=== PATIENT | male | born 1995 | race Caucasian/White ===

== ENCOUNTER 2018-06-13 16:18 | Inpatient (IN) | payer MEDICAID, OTHER ==
--- NOTE | 2018-06-13 16:28 | EDM.PDOC ---
ED HPI GENERAL MEDICAL PROBLEM - General Chief Complaint: Skin Complaint Time Seen by Provider: 06/13/18 16:24 Source of Information: Reports: Patient History Limitations: Reports: No Limitations - History of Present Illness INITIAL COMMENTS - FREE TEXT/NARRATIVE: History of present illness: []Patient had a positive RPR back in April but did not follow-up. Is sent to the ED by Dr. Knight with diagnosis of stage syphilis. Dr. Knight requested lumbar puncture admission for IV antibiotics. Patient has had penile ulcerations since April that have never cleared despite antibiotics. He also has a history of herpes. Dr. Knight gave him Bicillin IM prior to his sending him to the ED. Review of systems: As per history of present illness and below otherwise all systems reviewed and negative. Past medical history: As per history of present illness and as reviewed below otherwise noncontributory. Surgical history: As per history of present illness and as reviewed below otherwise noncontributory. Social history: No reported history of drug or alcohol abuse. Family history: As per history of present illness and as reviewed below otherwise noncontributory. Physical exam: General: Well developed, well nourished in NAD HEENT: Atraumatic, normocephalic, pupils reactive, negative for conjunctival pallor or scleral icterus, mucous membranes moist, throat clear, neck supple, nontender, trachea midline. Lungs: Clear to auscultation, breath sounds equal bilaterally, chest nontender. Heart: S1S2, regular, negative for clicks, rubs, or JVD. Abdomen: NABS, Soft, nondistended, nontender. Negative for masses or hepatosplenomegaly. Negative for costovertebral tenderness. Pelvis: Stable nontender. Genitourinary: Deferred. Rectal: Deferred. Extremities: Atraumatic, negative for cords or calf pain. Neurovascular unremarkable. Neuro: Awake, alert, oriented. Cranial nerves II through XII unremarkable. Cerebellum unremarkable. Motor and sensory unremarkable throughout. Exam nonfocal. Skin: Multiple ulcers on hands Diagnostics: Lumbar puncture be VDRL sent Therapeutics: Patient received Bicillin prior to arrival ED Course: Unremarkable Impression: Stage III syphilis Prescriptions: Plan: Admit for IV antibiotics Definitive disposition and diagnosis as appropriate pending reevaluation and review of above. Penis Pain Score (Numeric/FACES): 9 - Related Data Allergies Allergy/AdvReac Type Severity Reaction Status Date / Time No Known Allergies Allergy Verified 06/13/18 16:23 Home Meds: Home Meds . [No Known Home Meds] 04/16/18 [History] Past Medical History HEENT History: Reports: None Cardiovascular History: Reports: None Respiratory History: Reports: None Gastrointestinal History: Reports: None Genitourinary History: Reports: None Musculoskeletal History: Reports: None Neurological History: Reports: None Psychiatric History: Reports: None Endocrine/Metabolic History: Reports: None Hematologic History: Reports: None Immunologic History: Reports: None Oncologic (Cancer) History: Reports: None Dermatologic History: Reports: None - Infectious Disease History Infectious Disease History: Reports: Herpes - Past Surgical History Respiratory Surgical History: Reports: None Male Surgical History: Reports: None Social & Family History - Family History Family Medical History: Noncontributory ED ROS GENERAL - Review of Systems Review Of Systems: ROS reveals no pertinent complaints other than HPI. ED EXAM, SKIN/RASH Exam: See Below (See history of present illness) Course - Vital Signs Last Recorded V/S: Last Vital Signs Temp 97.4 F 06/13/18 16:20 Pulse 81 06/13/18 16:20 Resp 18 06/13/18 16:20 BP 99/59 L 06/13/18 16:20 Pulse Ox 97 06/13/18 16:20 - Orders/Labs/Meds Orders: Active Orders 24 hr Category Date Time Status Patient Status [ADT] Stat ADT 06/13/18 17:23 Active VDRL, CSF Stat Lab 06/13/18 17:15 Received Sodium Chloride 0.9% [Saline Flush] Med 06/13/18 17:23 Active 10 ml FLUSH ASDIRECTED PRN Sodium Chloride 0.9% [Saline Flush] Med 06/13/18 17:23 Active 2.5 ml FLUSH ASDIRECTED PRN Saline Lock Insert [OM.PC] Stat Oth 06/13/18 17:17 Ordered Medication Orders Acetaminophen (Tylenol) 650 mg PO Q4H PRN PRN Reason: Pain (Mild 1-3)/fever Docusate Sodium (Colace) 100 mg PO BID PRN PRN Reason: Constipation Enoxaparin Sodium (Lovenox) 40 mg SUBCUT Q24H DARIANA Last Admin: 06/13/18 18:32 Dose: 40 mg Penicillin G Potassium 4 (millunits/ Dextrose/Water) 100 mls @ 200 mls/hr IV Q4H [facility] Stop: 06/27/18 18:46 Ibuprofen (Motrin) 800 mg PO Q6H PRN PRN Reason: Pain (mild 1-3) Ketorolac Tromethamine (Toradol) 30 mg IV Q6H PRN PRN Reason: Pain (moderate 4-6) Morphine Sulfate (Morphine) 2 mg IVPUSH Q2H PRN PRN Reason: Pain (severe 7-10) Stop: 06/14/18 17:54 Last Admin: 06/13/18 18:33 Dose: 2 mg Nicotine (Habitrol) 14 mg TRDERM DAILY [facility] Last Admin: 06/13/18 18:59 Dose: 14 mg Ondansetron HCl (Zofran Odt) 4 mg PO Q4H PRN PRN Reason: nausea, able to take PO Ondansetron HCl (Zofran) 4 mg IVPUSH Q4H PRN PRN Reason: Nausea Polyethylene Glycol (Miralax) 17 gm PO DAILY PRN PRN Reason: Constipation Sodium Chloride (Saline Flush) 10 ml FLUSH ASDIRECTED PRN PRN Reason: Keep Vein Open Last Admin: 06/13/18 17:30 Dose: 10 ml Sodium Chloride (Saline Flush) 2.5 ml FLUSH ASDIRECTED PRN PRN Reason: Keep Vein Open Last Admin: 06/13/18 17:30 Dose: 2.5 ml Labs: Laboratory Tests 06/13/18 06/13/18 06/13/18 Range/Units 17:15 17:22 17:22 WBC 5.21 (4.0-11.0) K/uL RBC 4.43 L (4.50-5.90) M/uL Hgb 13.3 (13.0-17.0) g/dL Hct 38.9 (38.0-50.0) % MCV 87.8 (80.0-98.0) fL MCH 30.0 (27.0-32.0) pg MCHC 34.2 (31.0-37.0) g/dL RDW Std Deviation 43.4 (28.0-62.0) fl RDW Coeff of Zari 14 (11.0-15.0) % Plt Count 265 (150-400) K/uL MPV 10.20 (7.40-12.00) fL Neut % (Auto) 61.4 (48.0-80.0) % Lymph % (Auto) 27.8 (16.0-40.0) % [place] % (Auto) 9.2 (0.0-15.0) % Eos % (Auto) 0.4 (0.0-7.0) % Baso % (Auto) 1.2 (0.0-1.5) % Neut # (Auto) 3.2 (1.4-5.7) K/uL Lymph # (Auto) 1.5 (0.6-2.4) K/uL [place] # (Auto) 0.5 (0.0-0.8) K/uL Eos # (Auto) 0.0 (0.0-0.7) K/uL Baso # (Auto) 0.1 (0.0-0.1) K/uL Nucleated RBC % 0.0 /100WBC Nucleated RBCs # 0 K/uL Sodium 143 (136-148) mmol/L Potassium 3.7 (3.5-5.1) mmol/L Chloride 106 (98-107) mmol/L Carbon Dioxide 29.4 (21.0-32.0) mmol/L BUN 11 (7.0-18.0) mg/dL Creatinine 0.9 (0.8-1.3) mg/dL Est Cr Clr Drug Dosing 149.94 mL/min Estimated GFR (MDRD) > 60.0 ml/min Glucose 86 (74-106) mg/dL Calcium 8.3 L (8.5-10.1) mg/dL Total Bilirubin 0.3 (0.2-1.0) mg/dL AST 27 (15-37) IU/L ALT 34 (14-63) IU/L Alkaline Phosphatase 82 (46-116) U/L Total Protein 6.2 L (6.4-8.2) g/dL Albumin 2.6 L (3.4-5.0) g/dL Globulin 3.6 (2.6-4.0) g/dL Albumin/Globulin Ratio 0.7 L (0.9-1.6) CSF Appearance CLEAR CSF Color COLORLESS CSF WBC 0.045 H (0-0.005) K/uL CSF RBC 0.000 (0.0-0.0) M/uL CSF Mononuclear Cells 97.8 % CSF Polymorphonuclear 2.2 % CSF Glucose 56.0 (40-70) mg/dL CSF Total Protein 50 H (15-45) mg/dL Meds: Medications Generic Name Dose Route Start Last Admin Trade Name Freq PRN Reason Stop Dose Admin Acetaminophen 650 mg 06/13/18 17:52 Tylenol PO Q4H PRN Pain (Mild 1-3)/fever Docusate Sodium 100 mg 06/13/18 17:52 Colace PO BID PRN Constipation Enoxaparin Sodium 40 mg 06/13/18 18:00 06/13/18 18:32 Lovenox SUBCUT 40 mg Q24H DARIANA Administration Penicillin G Potassium 4 100 mls @ 200 mls/hr 06/13/18 18:45 millunits/ Dextrose/Water IV 06/27/18 18:46 Q4H DARIANA Ibuprofen 800 mg 06/13/18 17:52 Motrin PO Q6H PRN Pain (mild 1-3) Ketorolac Tromethamine 30 mg 06/13/18 17:52 Toradol IV Q6H PRN Pain (moderate 4-6) Morphine Sulfate 2 mg 06/13/18 17:52 06/13/18 18:33 Morphine IVPUSH 06/14/18 17:54 2 mg Q2H PRN Administration Pain (severe 7-10) Nicotine 14 mg 06/13/18 18:39 06/13/18 18:59 Habitrol TRDERM 14 mg DAILY DARIANA Administration Ondansetron HCl 4 mg 06/13/18 17:52 Zofran Odt PO Q4H PRN nausea, able to take PO Ondansetron HCl 4 mg 06/13/18 17:52 Zofran IVPUSH Q4H PRN Nausea Polyethylene Glycol 17 gm 06/13/18 17:52 Miralax PO DAILY PRN Constipation Sodium Chloride 10 ml 06/13/18 17:23 06/13/18 17:30 Saline Flush FLUSH 10 ml ASDIRECTED PRN Administration Keep Vein Open Sodium Chloride 2.5 ml 06/13/18 17:23 06/13/18 17:30 Saline Flush FLUSH 2.5 ml ASDIRECTED PRN Administration Keep Vein Open Discontinued Medications Generic Name Dose Route Start Last Admin Trade Name Korin PRN Reason Stop Dose Admin Ketorolac Tromethamine 60 mg 06/13/18 17:12 06/13/18 17:33 Toradol IM 06/13/18 17:13 Not Given ONETIME ONE Ketorolac Tromethamine 30 mg 06/13/18 17:16 06/13/18 17:25 Toradol IVPUSH 06/13/18 17:17 30 mg ONETIME ONE Administration Nicotine 14 mg 06/14/18 09:00 Habitrol TRDERM DAILY [facility] Departure - Departure Time of Disposition: 17:55 Disposition: Admitted As Inpatient 67 Condition: Good Clinical Impression: Syphilis in male - Discharge Information *PRESCRIPTION DRUG MONITORING PROGRAM REVIEWED*: No *COPY OF PRESCRIPTION DRUG MONITORING REPORT IN PATIENT EVAN: No - My Orders Last 24 Hours: My Active Orders 06/13/18 17:15 VDRL, CSF Stat 06/13/18 17:17 Saline Lock Insert [OM.PC] Stat 06/13/18 17:23 Patient Status [ADT] Stat Sodium Chloride 0.9% [Saline Flush] 10 ml FLUSH ASDIRECTED PRN Sodium Chloride 0.9% [Saline Flush] 2.5 ml FLUSH ASDIRECTED PRN - Assessment/Plan Last 24 Hours: My Active Orders 06/13/18 17:15 VDRL, CSF Stat 06/13/18 17:17 Saline Lock Insert [OM.PC] Stat 06/13/18 17:23 Patient Status [ADT] Stat Sodium Chloride 0.9% [Saline Flush] 10 ml FLUSH ASDIRECTED PRN Sodium Chloride 0.9% [Saline Flush] 2.5 ml FLUSH ASDIRECTED PRN
[2018-06-13] MEDS ORDERED: Ketorolac 60 MG/2 ML SDV IM ONE (17:12)
[2018-06-13] MEDS ORDERED: Ketorolac 30 MG/ML SDV IVPUSH ONE (17:16)
[2018-06-13] MEDS ORDERED: Sodium Chloride 0.9% 10 ML Syringe FLUSH PRN (17:23)
[2018-06-13] MEDS ORDERED: Sodium Chloride 0.9% 2.5 ML Syringe FLUSH PRN (17:23)
[2018-06-13] MEDS ORDERED: Ondansetron 4 MG Tab.DIS PO PRN (17:52)
[2018-06-13] MEDS ORDERED: Morphine 10 MG/ML Syringe IVPUSH PRN (17:52)
[2018-06-13] MEDS ORDERED: Ondansetron 4 MG/2 ML SDV IVPUSH PRN (17:52)
[2018-06-13] MEDS ORDERED: Docusate Sodium 100 MG Cap PO PRN (17:52)
[2018-06-13] MEDS ORDERED: Ketorolac 30 MG/ML SDV IV PRN (17:52)
[2018-06-13] MEDS ORDERED: Polyethylene Glycol 3350 Powder 17 GM Packet PO PRN (17:52)
[2018-06-13 18:00] LABS: CHLORIDE,CL 106 mmol/L (98-107); SODIUM,NA 143 mmol/L (136-148)
[2018-06-13] MEDS: Enoxaparin 40 MG/0.4 ML Syringe SUBCUT SCH (18:32)
[2018-06-13] MEDS ORDERED: WATER IV SCH ×2 (18:45)
[2018-06-13] MEDS ORDERED: PENICILLIN POTASSIUM IV SCH ×2 (18:45)
[2018-06-13] MEDS ORDERED: DEXTROSE IV SCH ×2 (18:45)
[2018-06-13] MEDS: Nicotine 14 MG/24 Hr Patch TRDERM SCH (18:59)
--- NOTE | 2018-06-13 19:15 | PCM.HP ---
H&P History of Present Illness - General Date of Service: 06/13/18 Admit Problem/Dx: Admission Diagnosis/Problem Admission Diagnosis/Problem Syphilis - History of Present Illness Initial Comments - Free Text/Narative: Dre Torres is a 22 y/o male who presented to the ER from Dr. Knight's clinic after there was a concern for neurosyphilis. Patient states that he recently moved from [place] to work in the [employer] and that since March he has been noticing genital lesions, ulcers and discharge. He noticed an abdominal rash few weeks ago which he thought it was from work since working in the [employer], however, the rash has resolved but he now has lesions on his hands and lower extremities. In addition, still has tender genital ulcers. For the past 1 week he has been having headaches and eye pain. In addition, a sore throat with some myalgias. He denies any other STI's and states that he was negative for HIV back in February. He is bisexual and does not use protection. Denies any illicit drug use. In the ER, a lumbar puncture was performed and CSF analysis results suggest neurosyphilis. I have consulted with Dr. Ann, Infectious Disease at [facility]. Patient will need Penicillin IV Q4H for at least 10-14 days. Penis Pain Score (Numeric/FACES): 9 - Related Data Allergies/Adverse Reactions: Allergies Allergy/AdvReac Type Severity Reaction Status Date / Time No Known Allergies Allergy Verified 06/13/18 16:23 Home Medications: Home Meds . [No Known Home Meds] 04/16/18 [History] Past Medical History - Past Health History Medical/Surgical History: Denies Medical/Surgical History HEENT History: Reports: None Cardiovascular History: Reports: None Respiratory History: Reports: None Gastrointestinal History: Reports: None Genitourinary History: Reports: None Musculoskeletal History: Reports: None Neurological History: Reports: None Psychiatric History: Reports: None Endocrine/Metabolic History: Reports: None Hematologic History: Reports: None Immunologic History: Reports: None Oncologic (Cancer) History: Reports: None Dermatologic History: Reports: None - Infectious Disease History Infectious Disease History: Reports: Herpes Other Infectious Disease History: syphillis - Past Surgical History Respiratory Surgical History: Reports: None Male Surgical History: Reports: None Social & Family History - Family History Family Medical History: Noncontributory - Tobacco Use Smoking Status *Q: Current Every Day Smoker Years of Tobacco use: 2 Packs/Tins Daily: 0.5 Month/Year Tobacco Last Used: june Second Hand Smoke Exposure: No - Caffeine Use Caffeine Use: Reports: Coffee, Energy Drinks, Tea - Alcohol Use Date of Last Drink: 06/03/18 Time of Last Drink: 21:00 - Recreational Drug Use Recreational Drug Use: No H&P Review of Systems - Review of Systems: Review Of Systems: ROS reveals no pertinent complaints other than HPI. Exam - Exam Exam: See Below - Vital Signs Vital Signs: Last Vital Signs Temp 36.3 C 06/13/18 16:20 Pulse 81 06/13/18 16:20 Resp 18 06/13/18 16:20 BP 99/59 L 06/13/18 16:20 Pulse Ox 97 06/13/18 16:20 Weight: 84.776 kg - Exam General: Alert, Oriented, Cooperative HEENT: Conjunctiva Clear, Mucosa Moist & [place] Lungs: Clear to Auscultation, Normal Respiratory Effort Cardiovascular: Regular Rate, Regular Rhythm GI/Abdominal Exam: Normal Bowel Sounds, Soft, Non-Tender Extremities: Other (there are small lesions on his hands bilaterally. In addition, some small round macular lesions on his lower extremities. ) Skin: Warm, Dry, Rash Neurological: Cranial Nerves Intact Neuro Extensive - Mental Status: Alert, Oriented x3 - Patient Data Lab Results Last 24 hrs: Laboratory Results - last 24 hr 06/13/18 06/13/18 06/13/18 Range/Units 17:15 17:22 17:22 WBC 5.21 (4.0-11.0) K/uL RBC 4.43 L (4.50-5.90) M/uL Hgb 13.3 (13.0-17.0) g/dL Hct 38.9 (38.0-50.0) % MCV 87.8 (80.0-98.0) fL MCH 30.0 (27.0-32.0) pg MCHC 34.2 (31.0-37.0) g/dL RDW Std Deviation 43.4 (28.0-62.0) fl RDW Coeff of Zari 14 (11.0-15.0) % Plt Count 265 (150-400) K/uL MPV 10.20 (7.40-12.00) fL Neut % (Auto) 61.4 (48.0-80.0) % Lymph % (Auto) 27.8 (16.0-40.0) % [place] % (Auto) 9.2 (0.0-15.0) % Eos % (Auto) 0.4 (0.0-7.0) % Baso % (Auto) 1.2 (0.0-1.5) % Neut # (Auto) 3.2 (1.4-5.7) K/uL Lymph # (Auto) 1.5 (0.6-2.4) K/uL [place] # (Auto) 0.5 (0.0-0.8) K/uL Eos # (Auto) 0.0 (0.0-0.7) K/uL Baso # (Auto) 0.1 (0.0-0.1) K/uL Nucleated RBC % 0.0 /100WBC Nucleated RBCs # 0 K/uL Sodium 143 (136-148) mmol/L Potassium 3.7 (3.5-5.1) mmol/L Chloride 106 (98-107) mmol/L Carbon Dioxide 29.4 (21.0-32.0) mmol/L BUN 11 (7.0-18.0) mg/dL Creatinine 0.9 (0.8-1.3) mg/dL Est Cr Clr Drug Dosing 149.94 mL/min Estimated GFR (MDRD) > 60.0 ml/min Glucose 86 (74-106) mg/dL Calcium 8.3 L (8.5-10.1) mg/dL Total Bilirubin 0.3 (0.2-1.0) mg/dL AST 27 (15-37) IU/L ALT 34 (14-63) IU/L Alkaline Phosphatase 82 (46-116) U/L Total Protein 6.2 L (6.4-8.2) g/dL Albumin 2.6 L (3.4-5.0) g/dL Globulin 3.6 (2.6-4.0) g/dL Albumin/Globulin Ratio 0.7 L (0.9-1.6) CSF Appearance CLEAR CSF Color COLORLESS CSF WBC 0.045 H (0-0.005) K/uL CSF RBC 0.000 (0.0-0.0) M/uL CSF Mononuclear Cells 97.8 % CSF Polymorphonuclear 2.2 % CSF Glucose 56.0 (40-70) mg/dL CSF Total Protein 50 H (15-45) mg/dL Result Diagrams: 06/13/18 17:22 06/13/18 17:22 Problem List Initiated/Reviewed/Updated: Yes Orders Last 24hrs: Active Orders 24 hr Category Date Time Status Patient Status [ADT] Stat ADT 06/13/18 17:23 Active Oxygen Therapy [RC] PRN Care 06/13/18 17:53 Active Up ad [place] [RC] ASDIRECTED Care 06/13/18 17:52 Active VTE/DVT Education [RC] PER UNIT ROUTINE Care 06/13/18 17:53 Active Vital Signs [RC] Q4H Care 06/13/18 17:53 Active Regular Diet [DIET] Diet 06/13/18 Dinner Active CHLAMYDIA AND GONORRHEA BY TMA Routine Lab 06/13/18 17:57 Ordered HIV12 AG/AB 4TH GEN [CHEM] Routine Lab 06/13/18 17:27 Received UA W/MICROSCOPIC [URIN] Routine Lab 06/13/18 18:00 Ordered VDRL, CSF Stat Lab 06/13/18 17:15 Received Acetaminophen [Tylenol] Med 06/13/18 17:52 Active 650 mg PO Q4H PRN Docusate Sodium [Colace] Med 06/13/18 17:52 Active 100 mg PO BID PRN Enoxaparin [Lovenox] Med 06/13/18 18:00 Active 40 mg SUBCUT Q24H Ibuprofen [Motrin] Med 06/13/18 17:52 Active 800 mg PO Q6H PRN Ketorolac [Toradol] Med 06/13/18 17:52 Active 30 mg IV Q6H PRN Morphine Med 06/13/18 17:52 Active 2 mg IVPUSH Q2H PRN Nicotine [Habitrol] Med 06/13/18 18:39 Active 14 mg TRDERM DAILY Ondansetron [Zofran ODT] Med 06/13/18 17:52 Active 4 mg PO Q4H PRN Ondansetron [Zofran] Med 06/13/18 17:52 Active 4 mg IVPUSH Q4H PRN Penicillin G Potassium [Pfizerpen] 4 millunits Med 06/13/18 18:45 Active Dextrose 5% in Water 100 ml IV Q4H Polyethylene Glycol 3350 [MiraLAX] Med 06/13/18 17:52 Active 17 gm PO DAILY PRN Sodium Chloride 0.9% [Saline Flush] Med 06/13/18 17:23 Active 10 ml FLUSH ASDIRECTED PRN Sodium Chloride 0.9% [Saline Flush] Med 06/13/18 17:23 Active 2.5 ml FLUSH ASDIRECTED PRN Precautions [COMM] Routine Oth 06/13/18 18:42 Ordered Saline Lock Insert [OM.PC] Stat Oth 06/13/18 17:17 Ordered Resuscitation Status Routine Resus Stat 06/13/18 17:52 Ordered Medication Orders Acetaminophen (Tylenol) 650 mg PO Q4H PRN PRN Reason: Pain (Mild 1-3)/fever Docusate Sodium (Colace) 100 mg PO BID PRN PRN Reason: Constipation Enoxaparin Sodium (Lovenox) 40 mg SUBCUT Q24H [facility] Last Admin: 06/13/18 18:32 Dose: 40 mg Penicillin G Potassium 4 (millunits/ Dextrose/Water) 100 mls @ 200 mls/hr IV Q4H [facility] Stop: 06/27/18 18:46 Ibuprofen (Motrin) 800 mg PO Q6H PRN PRN Reason: Pain (mild 1-3) Ketorolac Tromethamine (Toradol) 30 mg IV Q6H PRN PRN Reason: Pain (moderate 4-6) Morphine Sulfate (Morphine) 2 mg IVPUSH Q2H PRN PRN Reason: Pain (severe 7-10) Stop: 06/14/18 17:54 Last Admin: 06/13/18 18:33 Dose: 2 mg Nicotine (Habitrol) 14 mg TRDERM DAILY [facility] Last Admin: 06/13/18 18:59 Dose: 14 mg Ondansetron HCl (Zofran Odt) 4 mg PO Q4H PRN PRN Reason: nausea, able to take PO Ondansetron HCl (Zofran) 4 mg IVPUSH Q4H PRN PRN Reason: Nausea Polyethylene Glycol (Miralax) 17 gm PO DAILY PRN PRN Reason: Constipation Sodium Chloride (Saline Flush) 10 ml FLUSH ASDIRECTED PRN PRN Reason: Keep Vein Open Last Admin: 06/13/18 17:30 Dose: 10 ml Sodium Chloride (Saline Flush) 2.5 ml FLUSH ASDIRECTED PRN PRN Reason: Keep Vein Open Last Admin: 06/13/18 17:30 Dose: 2.5 ml Assessment/Plan Comment:: A: 1. Neurosyphilis 2. Tobacco abuse P: 1. Admit as inpatient to the medical floor. 2. Vitals, I/O per floor routine. 3. Activity: ad [place] 4. Diet: regular 5. DVT prophylaxis: lovenox 6. Code status: FULL CODE 1. Neurosyphilis: CSF results suggest neurosyphilis. Will start Penicillin 4 million units IV Q4H for 14 days. Also, ordered RPR titers, HIV, Chlamydia, Gonorrhea. Dispo: after finishing treatment
[2018-06-13] MEDS ORDERED: Morphine 2 MG/ML Syringe IVPUSH PRN (21:45)
[2018-06-14] MEDS: WATER IV SCH ×12 (01:14→21:01)
[2018-06-14] MEDS: PENICILLIN POTASSIUM IV SCH ×12 (01:14→21:01)
[2018-06-14] MEDS: DEXTROSE IV SCH ×12 (01:14→21:01)
[2018-06-14 06:05] LABS: CHLORIDE,CL 108 mmol/L (98-107); SODIUM,NA 142 mmol/L (136-148)
[2018-06-14] MEDS ORDERED: Potassium Chloride 10% 20 MEQ/15 ML Soln 30 ML UD Cup PO ONE (07:52)
[2018-06-14] MEDS: Ibuprofen 800 MG Tab PO PRN (08:39)
[2018-06-14] MEDS: Nicotine 14 MG/24 Hr Patch TRDERM SCH (08:40)
--- NOTE | 2018-06-14 08:52 | PCM.PN ---
- General Info Date of Service: 06/14/18 Subjective Update: 22 y/o male admitted for neurosyphilis and found to be HIV positive. Pending genotype. Currently on penicillin IV Q4H for 14 days. No acute events overnight. Tolerating PO intake. No chest pain, dyspnea, abdominal pain. - Patient Data Vitals - Most Recent: Last Vital Signs Temp 37.4 C 06/14/18 07:27 Pulse 63 06/14/18 07:27 Resp 18 06/14/18 07:27 BP 121/55 L 06/14/18 07:27 Pulse Ox 98 06/14/18 07:27 Weight - Most Recent: 84.776 kg I&O - Last 24 Hours: Intake & Output 06/13/18 06/14/18 06/14/18 22:59 06:59 14:59 Intake Total 2000 Output Total 480 Balance 1520 Lab Results Last 24 Hours: Laboratory Results - last 24 hr 06/13/18 06/13/18 06/13/18 Range/Units 17:15 17:22 17:22 WBC 5.21 (4.0-11.0) K/uL RBC 4.43 L (4.50-5.90) M/uL Hgb 13.3 (13.0-17.0) g/dL Hct 38.9 (38.0-50.0) % MCV 87.8 (80.0-98.0) fL MCH 30.0 (27.0-32.0) pg MCHC 34.2 (31.0-37.0) g/dL RDW Std Deviation 43.4 (28.0-62.0) fl RDW Coeff of Zari 14 (11.0-15.0) % Plt Count 265 (150-400) K/uL MPV 10.20 (7.40-12.00) fL Neut % (Auto) 61.4 (48.0-80.0) % Lymph % (Auto) 27.8 (16.0-40.0) % Dent % (Auto) 9.2 (0.0-15.0) % Eos % (Auto) 0.4 (0.0-7.0) % Baso % (Auto) 1.2 (0.0-1.5) % Neut # (Auto) 3.2 (1.4-5.7) K/uL Lymph # (Auto) 1.5 (0.6-2.4) K/uL Dent # (Auto) 0.5 (0.0-0.8) K/uL Eos # (Auto) 0.0 (0.0-0.7) K/uL Baso # (Auto) 0.1 (0.0-0.1) K/uL Add Manual Diff Neutrophils % (Manual) (48.0-80.0) % Band Neutrophils % % Lymphocytes % (Manual) (16.0-40.0) % Monocytes % (Manual) (0.0-15.0) % Eosinophils % (Manual) (0.0-7.0) % Nucleated RBC % 0.0 /100WBC Absolute Seg Neuts (1.4-5.7) Band Neutrophils # Lymphocytes # (Manual) (0.6-2.4) Monocytes # (Manual) (0.0-0.8) Eosinophils # (Manual) (0.0-0.7) Nucleated RBCs # 0 K/uL Sodium 143 (136-148) mmol/L Potassium 3.7 (3.5-5.1) mmol/L Chloride 106 (98-107) mmol/L Carbon Dioxide 29.4 (21.0-32.0) mmol/L BUN 11 (7.0-18.0) mg/dL Creatinine 0.9 (0.8-1.3) mg/dL Est Cr Clr Drug Dosing 149.94 mL/min Estimated GFR (MDRD) > 60.0 ml/min Glucose 86 (74-106) mg/dL Calcium 8.3 L (8.5-10.1) mg/dL Magnesium (1.8-2.4) mg/dL Total Bilirubin 0.3 (0.2-1.0) mg/dL AST 27 (15-37) IU/L ALT 34 (14-63) IU/L Alkaline Phosphatase 82 (46-116) U/L Total Protein 6.2 L (6.4-8.2) g/dL Albumin 2.6 L (3.4-5.0) g/dL Globulin 3.6 (2.6-4.0) g/dL Albumin/Globulin Ratio 0.7 L (0.9-1.6) Urine Color Urine Appearance Urine pH (5.0-8.0) Ur Specific [place] (1.001-1.035) Urine Protein (NEGATIVE) mg/dL Urine Glucose (UA) (NEGATIVE) mg/dL Urine Ketones (NEGATIVE) mg/dL Urine Occult Blood (NEGATIVE) Urine Nitrite (NEGATIVE) Urine Bilirubin (NEGATIVE) Urine Urobilinogen (<2.0) EU/dL Ur Leukocyte Esterase (NEGATIVE) Urine RBC (0-2/HPF) Urine WBC (0-5/HPF) Ur Epithelial Cells (NONE-FEW) Amorphous Sediment (NEGATIVE) Urine Bacteria (NEGATIVE) Urine Mucus (NONE-MOD) CSF Appearance CLEAR CSF Color COLORLESS CSF WBC 0.045 H (0-0.005) K/uL CSF RBC 0.000 (0.0-0.0) M/uL CSF Mononuclear Cells 97.8 % CSF Polymorphonuclear 2.2 % CSF Glucose 56.0 (40-70) mg/dL CSF Total Protein 50 H (15-45) mg/dL HIV 1&2 Ag/Ab, 4th Gen INDEX 06/13/18 06/14/18 06/14/18 Range/Units 17:27 05:15 05:15 WBC 4.57 (4.0-11.0) K/uL RBC 4.17 L (4.50-5.90) M/uL Hgb 11.9 L (13.0-17.0) g/dL Hct 36.5 L (38.0-50.0) % MCV 87.5 (80.0-98.0) fL MCH 28.5 (27.0-32.0) pg MCHC 32.6 (31.0-37.0) g/dL RDW Std Deviation 42.8 (28.0-62.0) fl RDW Coeff of Zari 14 (11.0-15.0) % Plt Count 267 (150-400) K/uL MPV 10.10 (7.40-12.00) fL Neut % (Auto) (48.0-80.0) % Lymph % (Auto) (16.0-40.0) % Dent % (Auto) (0.0-15.0) % Eos % (Auto) (0.0-7.0) % Baso % (Auto) (0.0-1.5) % Neut # (Auto) (1.4-5.7) K/uL Lymph # (Auto) (0.6-2.4) K/uL Dent # (Auto) (0.0-0.8) K/uL Eos # (Auto) (0.0-0.7) K/uL Baso # (Auto) (0.0-0.1) K/uL Add Manual Diff YES Neutrophils % (Manual) 56 (48.0-80.0) % Band Neutrophils % 2 % Lymphocytes % (Manual) 39 (16.0-40.0) % Monocytes % (Manual) 2 (0.0-15.0) % Eosinophils % (Manual) 1 (0.0-7.0) % Nucleated RBC % 0.0 /100WBC Absolute Seg Neuts 2.6 (1.4-5.7) Band Neutrophils # 0.1 Lymphocytes # (Manual) 1.8 (0.6-2.4) Monocytes # (Manual) 0.1 (0.0-0.8) Eosinophils # (Manual) 0.0 (0.0-0.7) Nucleated RBCs # 0 K/uL Sodium 142 (136-148) mmol/L Potassium 3.5 (3.5-5.1) mmol/L Chloride 108 H (98-107) mmol/L Carbon Dioxide 28.1 (21.0-32.0) mmol/L BUN 12 (7.0-18.0) mg/dL Creatinine 0.8 (0.8-1.3) mg/dL Est Cr Clr Drug Dosing 169.82 mL/min Estimated GFR (MDRD) > 60.0 ml/min Glucose 91 (74-106) mg/dL Calcium 8.3 L (8.5-10.1) mg/dL Magnesium (1.8-2.4) mg/dL Total Bilirubin 0.3 (0.2-1.0) mg/dL AST 31 (15-37) IU/L ALT 45 (14-63) IU/L Alkaline Phosphatase 77 (46-116) U/L Total Protein 5.4 L (6.4-8.2) g/dL Albumin 2.3 L (3.4-5.0) g/dL Globulin 3.1 (2.6-4.0) g/dL Albumin/Globulin Ratio 0.7 L (0.9-1.6) Urine Color Urine Appearance Urine pH (5.0-8.0) Ur Specific [place] (1.001-1.035) Urine Protein (NEGATIVE) mg/dL Urine Glucose (UA) (NEGATIVE) mg/dL Urine Ketones (NEGATIVE) mg/dL Urine Occult Blood (NEGATIVE) Urine Nitrite (NEGATIVE) Urine Bilirubin (NEGATIVE) Urine Urobilinogen (<2.0) EU/dL Ur Leukocyte Esterase (NEGATIVE) Urine RBC (0-2/HPF) Urine WBC (0-5/HPF) Ur Epithelial Cells (NONE-FEW) Amorphous Sediment (NEGATIVE) Urine Bacteria (NEGATIVE) Urine Mucus (NONE-MOD) CSF Appearance CSF Color CSF WBC (0-0.005) K/uL CSF RBC (0.0-0.0) M/uL CSF Mononuclear Cells % CSF Polymorphonuclear % CSF Glucose (40-70) mg/dL CSF Total Protein (15-45) mg/dL HIV 1&2 Ag/Ab, 4th Gen > 12.0 INDEX 06/14/18 06/14/18 Range/Units 05:15 06:40 WBC (4.0-11.0) K/uL RBC (4.50-5.90) M/uL Hgb (13.0-17.0) g/dL Hct (38.0-50.0) % MCV (80.0-98.0) fL MCH (27.0-32.0) pg MCHC (31.0-37.0) g/dL RDW Std Deviation (28.0-62.0) fl RDW Coeff of Zari (11.0-15.0) % Plt Count (150-400) K/uL MPV (7.40-12.00) fL Neut % (Auto) (48.0-80.0) % Lymph % (Auto) (16.0-40.0) % Dent % (Auto) (0.0-15.0) % Eos % (Auto) (0.0-7.0) % Baso % (Auto) (0.0-1.5) % Neut # (Auto) (1.4-5.7) K/uL Lymph # (Auto) (0.6-2.4) K/uL Dent # (Auto) (0.0-0.8) K/uL Eos # (Auto) (0.0-0.7) K/uL Baso # (Auto) (0.0-0.1) K/uL Add Manual Diff Neutrophils % (Manual) (48.0-80.0) % Band Neutrophils % % Lymphocytes % (Manual) (16.0-40.0) % Monocytes % (Manual) (0.0-15.0) % Eosinophils % (Manual) (0.0-7.0) % Nucleated RBC % /100WBC Absolute Seg Neuts (1.4-5.7) Band Neutrophils # Lymphocytes # (Manual) (0.6-2.4) Monocytes # (Manual) (0.0-0.8) Eosinophils # (Manual) (0.0-0.7) Nucleated RBCs # K/uL Sodium (136-148) mmol/L Potassium (3.5-5.1) mmol/L Chloride (98-107) mmol/L Carbon Dioxide (21.0-32.0) mmol/L BUN (7.0-18.0) mg/dL Creatinine (0.8-1.3) mg/dL Est Cr Clr Drug Dosing mL/min Estimated GFR (MDRD) ml/min Glucose (74-106) mg/dL Calcium (8.5-10.1) mg/dL Magnesium 1.9 (1.8-2.4) mg/dL Total Bilirubin (0.2-1.0) mg/dL AST (15-37) IU/L ALT (14-63) IU/L Alkaline Phosphatase (46-116) U/L Total Protein (6.4-8.2) g/dL Albumin (3.4-5.0) g/dL Globulin (2.6-4.0) g/dL Albumin/Globulin Ratio (0.9-1.6) Urine Color DARK YELLOW Urine Appearance CLEAR Urine pH 7.0 (5.0-8.0) Ur Specific [place] 1.020 (1.001-1.035) Urine Protein NEGATIVE (NEGATIVE) mg/dL Urine Glucose (UA) NEGATIVE (NEGATIVE) mg/dL Urine Ketones TRACE H (NEGATIVE) mg/dL Urine Occult Blood NEGATIVE (NEGATIVE) Urine Nitrite NEGATIVE (NEGATIVE) Urine Bilirubin NEGATIVE (NEGATIVE) Urine Urobilinogen 1.0 (<2.0) EU/dL Ur Leukocyte Esterase NEGATIVE (NEGATIVE) Urine RBC 0-1 (0-2/HPF) Urine WBC 0-1 (0-5/HPF) Ur Epithelial Cells RARE (NONE-FEW) Amorphous Sediment LIGHT (NEGATIVE) Urine Bacteria RARE (NEGATIVE) Urine Mucus MODERATE (NONE-MOD) CSF Appearance CSF Color CSF WBC (0-0.005) K/uL CSF RBC (0.0-0.0) M/uL CSF Mononuclear Cells % CSF Polymorphonuclear % CSF Glucose (40-70) mg/dL CSF Total Protein (15-45) mg/dL HIV 1&2 Ag/Ab, 4th Gen INDEX Med Orders - Current: Current Medications Acetaminophen (Tylenol) 650 mg PO Q4H PRN PRN Reason: Pain (Mild 1-3)/fever Docusate Sodium (Colace) 100 mg PO BID PRN PRN Reason: Constipation Last Admin: 06/14/18 08:39 Dose: 100 mg Enoxaparin Sodium (Lovenox) 40 mg SUBCUT Q24H [facility] Last Admin: 06/13/18 18:32 Dose: 40 mg Penicillin G Potassium 4 (millunits/ Dextrose/Water) 100 mls @ 200 mls/hr IV Q4H [facility] Last Admin: 06/14/18 08:41 Dose: 200 mls/hr Ibuprofen (Motrin) 800 mg PO Q6H PRN PRN Reason: Pain (mild 1-3) Last Admin: 06/14/18 08:39 Dose: 800 mg Ketorolac Tromethamine (Toradol) 30 mg IV Q6H PRN PRN Reason: Pain (moderate 4-6) Morphine Sulfate (Morphine) 2 mg IVPUSH Q2H PRN PRN Reason: Pain (severe 7-10) Stop: 06/14/18 17:54 Last Admin: 06/13/18 21:52 Dose: 2 mg Nicotine (Habitrol) 14 mg TRDERM DAILY [facility] Last Admin: 06/14/18 08:40 Dose: 14 mg Ondansetron HCl (Zofran Odt) 4 mg PO Q4H PRN PRN Reason: nausea, able to take PO Ondansetron HCl (Zofran) 4 mg IVPUSH Q4H PRN PRN Reason: Nausea Polyethylene Glycol (Miralax) 17 gm PO DAILY PRN PRN Reason: Constipation Sodium Chloride (Saline Flush) 10 ml FLUSH ASDIRECTED PRN PRN Reason: Keep Vein Open Last Admin: 06/13/18 17:30 Dose: 10 ml Sodium Chloride (Saline Flush) 2.5 ml FLUSH ASDIRECTED PRN PRN Reason: Keep Vein Open Last Admin: 06/13/18 17:30 Dose: 2.5 ml Discontinued Medications Penicillin G Potassium 4 (millunits/ Dextrose/Water) 100 mls @ 200 mls/hr IV Q4H [facility] Stop: 06/27/18 18:46 Last Admin: 06/13/18 21:06 Dose: 200 mls/hr Ketorolac Tromethamine (Toradol) 60 mg IM ONETIME ONE Stop: 06/13/18 17:13 Last Admin: 06/13/18 17:33 Dose: Not Given Ketorolac Tromethamine (Toradol) 30 mg IVPUSH ONETIME ONE Stop: 06/13/18 17:17 Last Admin: 06/13/18 17:25 Dose: 30 mg Morphine Sulfate (Morphine) 2 mg IVPUSH Q2H PRN PRN Reason: Pain (severe 7-10) Stop: 06/14/18 17:54 Last Admin: 06/13/18 18:33 Dose: 2 mg Nicotine (Habitrol) 14 mg TRDERM DAILY [facility] Potassium Chloride (Potassium Chloride) 40 meq PO ONETIME ONE Stop: 06/14/18 07:53 Last Admin: 06/14/18 08:39 Dose: 40 meq - Exam General: Alert, Oriented, Cooperative, No Acute Distress Lungs: Clear to Auscultation, Normal Respiratory Effort Cardiovascular: Regular Rate, Regular Rhythm GI/Abdominal Exam: Normal Bowel Sounds, Soft, Non-Tender, No Distention Extremities: Normal Inspection, No Pedal Edema Skin: Warm, Dry Neurological: No New Focal Deficit - Problem List Review Problem List Initiated/Reviewed/Updated: Yes - My Orders Last 24 Hours: My Active Orders 06/13/18 17:52 Up ad [place] [RC] ASDIRECTED Acetaminophen [Tylenol] 650 mg PO Q4H PRN Docusate Sodium [Colace] 100 mg PO BID PRN Ibuprofen [Motrin] 800 mg PO Q6H PRN Ketorolac [Toradol] 30 mg IV Q6H PRN Ondansetron [Zofran ODT] 4 mg PO Q4H PRN Ondansetron [Zofran] 4 mg IVPUSH Q4H PRN Polyethylene Glycol 3350 [MiraLAX] 17 gm PO DAILY PRN Resuscitation Status Routine 06/13/18 17:53 Oxygen Therapy [RC] PRN VTE/DVT Education [RC] PER UNIT ROUTINE Vital Signs [RC] Q4H 06/13/18 17:57 CHLAMYDIA AND GONORRHEA BY TMA Routine 06/13/18 18:00 Enoxaparin [Lovenox] 40 mg SUBCUT Q24H 06/13/18 18:39 Nicotine [Habitrol] 14 mg TRDERM DAILY 06/13/18 18:42 Precautions [COMM] Routine 06/13/18 21:45 Morphine 2 mg IVPUSH Q2H PRN 06/13/18 Dinner Regular Diet [DIET] 06/14/18 01:00 Penicillin G Potassium [Pfizerpen] 4 millunits Dextrose 5% in Water 100 ml IV Q4H 06/14/18 06:40 CULTURE URINE [RM] Routine 06/14/18 07:45 HIV RNA, RT PCR (NONGRAPH) PL [REF] Routine - Plan Plan:: A: 1. Neurosyphilis 2. HIV positive, pending genotype 3. Hypokalemia 4. Tobacco abuse P: 1. Neurosyphilis: Continue with penicillin IV Q4H for total of 14 days. 2. HIV positive. Spoke with Dr. Ann, Infectious Disease who recommended not starting ART at this time. May start as outpatient after finishing treatment for neursosyphilis. Patient will need to follow-up with Dr. Ann in [place] after finishing 14 day treatment. 3. Hypokalemia. Replaced with KCl 40 mEq once. Recheck tomorrow. Dispo: Patient will need to follow-up with Dr. Ann after finishing 14 day treatment.
[2018-06-14] MEDS ORDERED: Nicotine 14 MG/24 Hr Patch TRDERM SCH (09:00)
[2018-06-14] MEDS: Acetaminophen 325 MG Tab PO PRN (16:07)
[2018-06-14] MEDS: Enoxaparin 40 MG/0.4 ML Syringe SUBCUT SCH (17:12)
[2018-06-14] MEDS: Morphine 2 MG/ML Syringe IVPUSH PRN (22:30)
[2018-06-15] MEDS: DEXTROSE IV SCH ×12 (00:32→20:56)
[2018-06-15] MEDS: PENICILLIN POTASSIUM IV SCH ×12 (00:32→20:56)
[2018-06-15] MEDS: WATER IV SCH ×12 (00:32→20:56)
[2018-06-15] MEDS: Morphine 2 MG/ML Syringe IVPUSH PRN ×4 (02:30→18:33)
[2018-06-15] MEDS: Nicotine 14 MG/24 Hr Patch TRDERM SCH (09:16)
[2018-06-15] MEDS: Ibuprofen 800 MG Tab PO PRN ×2 (09:17→15:45)
--- NOTE | 2018-06-15 12:15 | PCM.PN ---
- General Info Date of Service: 06/15/18 - Review of Systems Systems Review Comment:: no new complaints, no headache - Patient Data Vitals - Most Recent: Last Vital Signs Temp 36.4 C 06/15/18 12:00 Pulse 60 06/15/18 12:00 Resp 16 06/15/18 12:00 BP 132/55 L 06/15/18 12:00 Pulse Ox 98 06/15/18 12:00 Weight - Most Recent: 84.776 kg I&O - Last 24 Hours: Intake & Output 06/14/18 06/15/18 06/15/18 22:59 06:59 14:59 Intake Total 1300 Balance 1300 Solomon Results Last 24 Hours: Microbiology 06/14/18 06:40 Urine Culture - Preliminary Urine, Clean Catch NO GROWTH AFTER 1 DAY Med Orders - Current: Current Medications Acetaminophen (Tylenol) 650 mg PO Q4H PRN PRN Reason: Pain (Mild 1-3)/fever Last Admin: 06/14/18 16:07 Dose: 650 mg Docusate Sodium (Colace) 100 mg PO BID PRN PRN Reason: Constipation Last Admin: 06/14/18 08:39 Dose: 100 mg Enoxaparin Sodium (Lovenox) 40 mg SUBCUT Q24H [facility] Last Admin: 06/14/18 17:12 Dose: 40 mg Penicillin G Potassium 4 (millunits/ Dextrose/Water) 100 mls @ 200 mls/hr IV Q4H [facility] Last Admin: 06/15/18 09:16 Dose: 200 mls/hr Ibuprofen (Motrin) 800 mg PO Q6H PRN PRN Reason: Pain (mild 1-3) Last Admin: 06/15/18 09:17 Dose: 800 mg Morphine Sulfate (Morphine) 2 mg IVPUSH Q4H PRN PRN Reason: Pain Last Admin: 06/15/18 06:36 Dose: 2 mg Nicotine (Habitrol) 14 mg TRDERM DAILY [facility] Last Admin: 06/15/18 09:16 Dose: 14 mg Ondansetron HCl (Zofran Odt) 4 mg PO Q4H PRN PRN Reason: nausea, able to take PO Ondansetron HCl (Zofran) 4 mg IVPUSH Q4H PRN PRN Reason: Nausea Polyethylene Glycol (Miralax) 17 gm PO DAILY PRN PRN Reason: Constipation Sodium Chloride (Saline Flush) 10 ml FLUSH ASDIRECTED PRN PRN Reason: Keep Vein Open Last Admin: 06/13/18 17:30 Dose: 10 ml Sodium Chloride (Saline Flush) 2.5 ml FLUSH ASDIRECTED PRN PRN Reason: Keep Vein Open Last Admin: 06/13/18 17:30 Dose: 2.5 ml Discontinued Medications Penicillin G Potassium 4 (millunits/ Dextrose/Water) 100 mls @ 200 mls/hr IV Q4H [facility] Stop: 06/27/18 18:46 Last Admin: 06/13/18 21:06 Dose: 200 mls/hr Ketorolac Tromethamine (Toradol) 60 mg IM ONETIME ONE Stop: 06/13/18 17:13 Last Admin: 06/13/18 17:33 Dose: Not Given Ketorolac Tromethamine (Toradol) 30 mg IVPUSH ONETIME ONE Stop: 06/13/18 17:17 Last Admin: 06/13/18 17:25 Dose: 30 mg Ketorolac Tromethamine (Toradol) 30 mg IV Q6H PRN PRN Reason: Pain (moderate 4-6) Morphine Sulfate (Morphine) 2 mg IVPUSH Q2H PRN PRN Reason: Pain (severe 7-10) Stop: 06/14/18 17:54 Last Admin: 06/13/18 18:33 Dose: 2 mg Morphine Sulfate (Morphine) 2 mg IVPUSH Q2H PRN PRN Reason: Pain (severe 7-10) Stop: 06/14/18 17:54 Last Admin: 06/13/18 21:52 Dose: 2 mg Nicotine (Habitrol) 14 mg TRDERM DAILY [facility] Potassium Chloride (Potassium Chloride) 40 meq PO ONETIME ONE Stop: 06/14/18 07:53 Last Admin: 06/14/18 08:39 Dose: 40 meq - Exam General: Alert, Oriented Lungs: Clear to Auscultation, Normal Respiratory Effort Cardiovascular: Regular Rate, Regular Rhythm GI/Abdominal Exam: Soft, Non-Tender Extremities: No Pedal Edema Skin: Other (genital lesions stable, no edema or drainage) Neurological: No New Focal Deficit - Problem List Review Problem List Initiated/Reviewed/Updated: Yes - My Orders Last 24 Hours: My Active Orders 06/14/18 21:29 Morphine 2 mg IVPUSH Q4H PRN - Plan Plan:: 22 yo male admitted with neurosyphilis and newly discovered HIV positive. Will continue penicillin IV q4hrs.
[2018-06-15] MEDS: Enoxaparin 40 MG/0.4 ML Syringe SUBCUT SCH (17:25)
[2018-06-16] MEDS: Morphine 2 MG/ML Syringe IVPUSH PRN ×5 (01:03→21:15)
[2018-06-16] MEDS: WATER IV SCH ×12 (01:07→21:21)
[2018-06-16] MEDS: PENICILLIN POTASSIUM IV SCH ×12 (01:07→21:21)
[2018-06-16] MEDS: DEXTROSE IV SCH ×12 (01:07→21:21)
[2018-06-16] MEDS: Ibuprofen 800 MG Tab PO PRN ×2 (05:00→12:16)
[2018-06-16] MEDS ORDERED: Morphine 2 MG/ML Syringe IVPUSH ONE (05:56)
--- NOTE | 2018-06-16 08:38 | PCM.PN ---
- General Info Date of Service: 06/16/18 - Review of Systems Systems Review Comment:: feeling ok, reports pain from genital sores - Patient Data Vitals - Most Recent: Last Vital Signs Temp 36.7 C 06/16/18 04:00 Pulse 77 06/16/18 04:00 Resp 19 06/16/18 04:00 BP 130/66 06/16/18 04:00 Pulse Ox 97 06/16/18 04:00 Weight - Most Recent: 84.776 kg I&O - Last 24 Hours: Intake & Output 06/15/18 06/16/18 06/16/18 22:59 06:59 14:59 Intake Total 100 900 Balance 100 900 Solomon Results Last 24 Hours: Microbiology 06/14/18 06:40 Urine Culture - Final Urine, Clean Catch No Growth Med Orders - Current: Current Medications Acetaminophen (Tylenol) 650 mg PO Q4H PRN PRN Reason: Pain (Mild 1-3)/fever Last Admin: 06/14/18 16:07 Dose: 650 mg Docusate Sodium (Colace) 100 mg PO BID PRN PRN Reason: Constipation Last Admin: 06/14/18 08:39 Dose: 100 mg Enoxaparin Sodium (Lovenox) 40 mg SUBCUT Q24H [facility] Last Admin: 06/15/18 17:25 Dose: 40 mg Penicillin G Potassium 4 (millunits/ Dextrose/Water) 100 mls @ 200 mls/hr IV Q4H [facility] Last Admin: 06/16/18 04:59 Dose: 200 mls/hr Ibuprofen (Motrin) 800 mg PO Q6H PRN PRN Reason: Pain (mild 1-3) Last Admin: 06/16/18 05:00 Dose: 800 mg Morphine Sulfate (Morphine) 2 mg IVPUSH Q4H PRN PRN Reason: Pain Last Admin: 06/16/18 04:58 Dose: 2 mg Nicotine (Habitrol) 14 mg TRDERM DAILY [facility] Last Admin: 06/15/18 09:16 Dose: 14 mg Ondansetron HCl (Zofran Odt) 4 mg PO Q4H PRN PRN Reason: nausea, able to take PO Ondansetron HCl (Zofran) 4 mg IVPUSH Q4H PRN PRN Reason: Nausea Polyethylene Glycol (Miralax) 17 gm PO DAILY PRN PRN Reason: Constipation Sodium Chloride (Saline Flush) 10 ml FLUSH ASDIRECTED PRN PRN Reason: Keep Vein Open Last Admin: 06/13/18 17:30 Dose: 10 ml Sodium Chloride (Saline Flush) 2.5 ml FLUSH ASDIRECTED PRN PRN Reason: Keep Vein Open Last Admin: 06/13/18 17:30 Dose: 2.5 ml Discontinued Medications Penicillin G Potassium 4 (millunits/ Dextrose/Water) 100 mls @ 200 mls/hr IV Q4H [facility] Stop: 06/27/18 18:46 Last Admin: 06/13/18 21:06 Dose: 200 mls/hr Ketorolac Tromethamine (Toradol) 60 mg IM ONETIME ONE Stop: 06/13/18 17:13 Last Admin: 06/13/18 17:33 Dose: Not Given Ketorolac Tromethamine (Toradol) 30 mg IVPUSH ONETIME ONE Stop: 06/13/18 17:17 Last Admin: 06/13/18 17:25 Dose: 30 mg Ketorolac Tromethamine (Toradol) 30 mg IV Q6H PRN PRN Reason: Pain (moderate 4-6) Morphine Sulfate (Morphine) 2 mg IVPUSH Q2H PRN PRN Reason: Pain (severe 7-10) Stop: 06/14/18 17:54 Last Admin: 06/13/18 18:33 Dose: 2 mg Morphine Sulfate (Morphine) 2 mg IVPUSH Q2H PRN PRN Reason: Pain (severe 7-10) Stop: 06/14/18 17:54 Last Admin: 06/13/18 21:52 Dose: 2 mg Morphine Sulfate (Morphine) 2 mg IVPUSH ONETIME ONE Stop: 06/16/18 05:57 Last Admin: 06/16/18 06:06 Dose: 2 mg Nicotine (Habitrol) 14 mg TRDERM DAILY [facility] Potassium Chloride (Potassium Chloride) 40 meq PO ONETIME ONE Stop: 06/14/18 07:53 Last Admin: 06/14/18 08:39 Dose: 40 meq - Exam General: Alert, Oriented Lungs: Clear to Auscultation, Normal Respiratory Effort Cardiovascular: Regular Rate, Regular Rhythm GI/Abdominal Exam: Soft, Non-Tender (Male) Exam: Other (refusses exam) Extremities: Non-Tender, No Pedal Edema Skin: Warm - Problem List Review Problem List Initiated/Reviewed/Updated: Yes - My Orders Last 24 Hours: My Active Orders 06/16/18 05:00 BMP [BASIC METABOLIC PANEL,BMP] [CHEM] Routine - Plan Plan:: 22 yo male admitted with neurosyphilis and newly discovered HIV positive. Will continue penicillin IV q4hrs. Patient agrees to repeat labs today.
[2018-06-16] MEDS: Nicotine 14 MG/24 Hr Patch TRDERM SCH (08:50)
[2018-06-16 11:52] LABS: CHLORIDE,CL 106 mmol/L (98-107); SODIUM,NA 142 mmol/L (136-148)
[2018-06-16] MEDS: oxyCODONE 5 MG Tab PO PRN ×2 (14:46→22:26)
[2018-06-16] MEDS: Enoxaparin 40 MG/0.4 ML Syringe SUBCUT SCH (18:10)
[2018-06-17] MEDS: WATER IV SCH ×12 (01:14→21:08)
[2018-06-17] MEDS: PENICILLIN POTASSIUM IV SCH ×12 (01:14→21:08)
[2018-06-17] MEDS: DEXTROSE IV SCH ×12 (01:14→21:08)
[2018-06-17] MEDS: Morphine 2 MG/ML Syringe IVPUSH PRN ×4 (01:15→21:15)
[2018-06-17] MEDS: oxyCODONE 5 MG Tab PO PRN ×3 (04:50→18:49)
[2018-06-17] MEDS ORDERED: cefTRIAXone 2 GM in Sodium Chloride 0.9% 50 ML IV ONE (05:00)
[2018-06-17] MEDS: Nicotine 14 MG/24 Hr Patch TRDERM SCH (09:40)
--- NOTE | 2018-06-17 12:04 | PCM.PN ---
- General Info Date of Service: 06/17/18 - Review of Systems Systems Review Comment:: no new complaints, reports genital pain stable. - Patient Data Vitals - Most Recent: Last Vital Signs Temp 36.7 C 06/17/18 07:38 Pulse 61 06/17/18 07:38 Resp 18 06/17/18 07:38 BP 125/59 L 06/17/18 07:38 Pulse Ox 94 L 06/17/18 07:38 Weight - Most Recent: 84.776 kg I&O - Last 24 Hours: Intake & Output 06/16/18 06/17/18 06/17/18 22:59 06:59 14:59 Intake Total 800 1000 Balance 800 1000 Lab Results Last 24 Hours: Laboratory Results - last 24 hr 06/16/18 Range/Units 11:20 WBC 5.89 (4.0-11.0) K/uL RBC 4.55 (4.50-5.90) M/uL Hgb 13.3 (13.0-17.0) g/dL Hct 40.1 (38.0-50.0) % MCV 88.1 (80.0-98.0) fL MCH 29.2 (27.0-32.0) pg MCHC 33.2 (31.0-37.0) g/dL RDW Std Deviation 43.1 (28.0-62.0) fl RDW Coeff of Zari 14 (11.0-15.0) % Plt Count 326 (150-400) K/uL MPV 10.00 (7.40-12.00) fL Add Manual Diff YES Neutrophils % (Manual) 34 L (48.0-80.0) % Band Neutrophils % 3 % Lymphocytes % (Manual) 54 H (16.0-40.0) % Monocytes % (Manual) 9 (0.0-15.0) % Nucleated RBC % 0.0 /100WBC Absolute Seg Neuts 2.0 (1.4-5.7) Band Neutrophils # 0.2 Lymphocytes # (Manual) 3.2 H (0.6-2.4) Monocytes # (Manual) 0.5 (0.0-0.8) Nucleated RBCs # 0 K/uL Solomon Results Last 24 Hours: Microbiology 06/14/18 06:40 Urine Culture - Final Urine, Clean Catch No Growth Med Orders - Current: Current Medications Acetaminophen (Tylenol) 650 mg PO Q4H PRN PRN Reason: Pain (Mild 1-3)/fever Last Admin: 06/14/18 16:07 Dose: 650 mg Docusate Sodium (Colace) 100 mg PO BID PRN PRN Reason: Constipation Last Admin: 06/14/18 08:39 Dose: 100 mg Enoxaparin Sodium (Lovenox) 40 mg SUBCUT Q24H [facility] Last Admin: 06/16/18 18:10 Dose: 40 mg Penicillin G Potassium 4 (millunits/ Dextrose/Water) 100 mls @ 200 mls/hr IV Q4H [facility] Last Admin: 06/17/18 09:42 Dose: Not Given Ibuprofen (Motrin) 800 mg PO Q6H PRN PRN Reason: Pain (mild 1-3) Last Admin: 06/16/18 12:16 Dose: 800 mg Morphine Sulfate (Morphine) 2 mg IVPUSH Q4H PRN PRN Reason: Pain Last Admin: 06/17/18 09:41 Dose: 2 mg Nicotine (Habitrol) 14 mg TRDERM DAILY [facility] Last Admin: 06/17/18 09:40 Dose: 14 mg Ondansetron HCl (Zofran Odt) 4 mg PO Q4H PRN PRN Reason: nausea, able to take PO Ondansetron HCl (Zofran) 4 mg IVPUSH Q4H PRN PRN Reason: Nausea Oxycodone HCl (Oxycodone) 5 mg PO Q6H PRN PRN Reason: Pain Last Admin: 06/17/18 04:50 Dose: 5 mg Polyethylene Glycol (Miralax) 17 gm PO DAILY PRN PRN Reason: Constipation Sodium Chloride (Saline Flush) 10 ml FLUSH ASDIRECTED PRN PRN Reason: Keep Vein Open Last Admin: 06/13/18 17:30 Dose: 10 ml Sodium Chloride (Saline Flush) 2.5 ml FLUSH ASDIRECTED PRN PRN Reason: Keep Vein Open Last Admin: 06/13/18 17:30 Dose: 2.5 ml Discontinued Medications Penicillin G Potassium 4 (millunits/ Dextrose/Water) 100 mls @ 200 mls/hr IV Q4H [facility] Stop: 06/27/18 18:46 Last Admin: 06/13/18 21:06 Dose: 200 mls/hr Ceftriaxone Sodium 2 gm/ (Sodium Chloride) 50 mls @ 100 mls/hr IV ONETIME ONE Stop: 06/17/18 05:29 Last Admin: 06/17/18 04:10 Dose: 100 mls/hr Ketorolac Tromethamine (Toradol) 60 mg IM ONETIME ONE Stop: 06/13/18 17:13 Last Admin: 06/13/18 17:33 Dose: Not Given Ketorolac Tromethamine (Toradol) 30 mg IVPUSH ONETIME ONE Stop: 06/13/18 17:17 Last Admin: 06/13/18 17:25 Dose: 30 mg Ketorolac Tromethamine (Toradol) 30 mg IV Q6H PRN PRN Reason: Pain (moderate 4-6) Morphine Sulfate (Morphine) 2 mg IVPUSH Q2H PRN PRN Reason: Pain (severe 7-10) Stop: 06/14/18 17:54 Last Admin: 06/13/18 18:33 Dose: 2 mg Morphine Sulfate (Morphine) 2 mg IVPUSH Q2H PRN PRN Reason: Pain (severe 7-10) Stop: 06/14/18 17:54 Last Admin: 06/13/18 21:52 Dose: 2 mg Morphine Sulfate (Morphine) 2 mg IVPUSH ONETIME ONE Stop: 06/16/18 05:57 Last Admin: 06/16/18 06:06 Dose: 2 mg Nicotine (Habitrol) 14 mg TRDERM DAILY [facility] Potassium Chloride (Potassium Chloride) 40 meq PO ONETIME ONE Stop: 06/14/18 07:53 Last Admin: 06/14/18 08:39 Dose: 40 meq - Exam General: Alert, Oriented Lungs: Clear to Auscultation, Normal Respiratory Effort Cardiovascular: Regular Rate, Regular Rhythm Extremities: Non-Tender, No Pedal Edema Neurological: No New Focal Deficit - Problem List Review Problem List Initiated/Reviewed/Updated: Yes - My Orders Last 24 Hours: My Active Orders 06/16/18 14:29 oxyCODONE 5 mg PO Q6H PRN - Plan Plan:: 22 yo male admitted with neurosyphilis and newly discovered HIV positive. Patient received a dose of Rocephin this morning while awaiting restocking of penicillin
[2018-06-17] MEDS: Enoxaparin 40 MG/0.4 ML Syringe SUBCUT SCH (18:39)
[2018-06-18] MEDS: DEXTROSE IV SCH ×12 (00:34→20:48)
[2018-06-18] MEDS: WATER IV SCH ×12 (00:34→20:48)
[2018-06-18] MEDS: PENICILLIN POTASSIUM IV SCH ×12 (00:34→20:48)
[2018-06-18] MEDS: Acetaminophen 325 MG Tab PO PRN ×3 (00:51→18:04)
[2018-06-18] MEDS: oxyCODONE 5 MG Tab PO PRN ×3 (00:51→18:59)
[2018-06-18] MEDS: Morphine 2 MG/ML Syringe IVPUSH PRN ×3 (06:13→20:53)
--- NOTE | 2018-06-18 07:55 | PCM.PN ---
- General Info Date of Service: 06/18/18 Subjective Update: 22M recently dx w/ HIV+, syphilis now on day 5 of admission for treatment of syphilis with penicillin. Hospital had a shortage of penicillin so he received Rocephin yesterday, but as per nursing staff, he has been back on penicillin since last night. Talking to the patient, he appears to be upset with his diagnosis. He tells me that his pain is stable, he is complaining of pain in his groin and a headache, but these have been ongoing since prior to his admission. He has no new complaints this morning. - Review of Systems General: Reports: No Symptoms HEENT: Reports: No Symptoms Pulmonary: Reports: No Symptoms Cardiovascular: Reports: No Symptoms Gastrointestinal: Reports: No Symptoms Genitourinary: Reports: No Symptoms Musculoskeletal: Reports: No Symptoms Skin: Reports: No Symptoms Neurological: Reports: No Symptoms Psychiatric: Reports: No Symptoms - Patient Data Vitals - Most Recent: Last Vital Signs Temp 37.2 C 06/18/18 05:00 Pulse 76 06/18/18 05:00 Resp 20 06/18/18 05:00 BP 116/55 L 06/18/18 05:00 Pulse Ox 96 06/18/18 05:00 Weight - Most Recent: 84.776 kg I&O - Last 24 Hours: Intake & Output 06/17/18 06/18/18 06/18/18 22:59 06:59 14:59 Intake Total 1200 200 Balance 1200 200 Lab Results Last 24 Hours: Laboratory Results - last 24 hr 06/13/18 Range/Units 17:27 RPR *REAC H (Non-Reac) Med Orders - Current: Current Medications Acetaminophen (Tylenol) 650 mg PO Q4H PRN PRN Reason: Pain (Mild 1-3)/fever Last Admin: 06/18/18 00:51 Dose: 650 mg Docusate Sodium (Colace) 100 mg PO BID PRN PRN Reason: Constipation Last Admin: 06/14/18 08:39 Dose: 100 mg Enoxaparin Sodium (Lovenox) 40 mg SUBCUT Q24H [facility] Last Admin: 06/17/18 18:39 Dose: 40 mg Penicillin G Potassium 4 (millunits/ Dextrose/Water) 100 mls @ 200 mls/hr IV Q4H [facility] Last Admin: 06/18/18 05:20 Dose: 200 mls/hr Ibuprofen (Motrin) 800 mg PO Q6H PRN PRN Reason: Pain (mild 1-3) Last Admin: 06/16/18 12:16 Dose: 800 mg Morphine Sulfate (Morphine) 2 mg IVPUSH Q4H PRN PRN Reason: Pain Last Admin: 06/18/18 06:13 Dose: 2 mg Nicotine (Habitrol) 14 mg TRDERM DAILY [facility] Last Admin: 06/17/18 09:40 Dose: 14 mg Ondansetron HCl (Zofran Odt) 4 mg PO Q4H PRN PRN Reason: nausea, able to take PO Ondansetron HCl (Zofran) 4 mg IVPUSH Q4H PRN PRN Reason: Nausea Oxycodone HCl (Oxycodone) 5 mg PO Q6H PRN PRN Reason: Pain Last Admin: 06/18/18 00:51 Dose: 5 mg Polyethylene Glycol (Miralax) 17 gm PO DAILY PRN PRN Reason: Constipation Sodium Chloride (Saline Flush) 10 ml FLUSH ASDIRECTED PRN PRN Reason: Keep Vein Open Last Admin: 06/13/18 17:30 Dose: 10 ml Sodium Chloride (Saline Flush) 2.5 ml FLUSH ASDIRECTED PRN PRN Reason: Keep Vein Open Last Admin: 06/13/18 17:30 Dose: 2.5 ml Discontinued Medications Penicillin G Potassium 4 (millunits/ Dextrose/Water) 100 mls @ 200 mls/hr IV Q4H [facility] Stop: 06/27/18 18:46 Last Admin: 06/13/18 21:06 Dose: 200 mls/hr Ceftriaxone Sodium 2 gm/ (Sodium Chloride) 50 mls @ 100 mls/hr IV ONETIME ONE Stop: 06/17/18 05:29 Last Admin: 06/17/18 04:10 Dose: 100 mls/hr Ketorolac Tromethamine (Toradol) 60 mg IM ONETIME ONE Stop: 06/13/18 17:13 Last Admin: 06/13/18 17:33 Dose: Not Given Ketorolac Tromethamine (Toradol) 30 mg IVPUSH ONETIME ONE Stop: 06/13/18 17:17 Last Admin: 06/13/18 17:25 Dose: 30 mg Ketorolac Tromethamine (Toradol) 30 mg IV Q6H PRN PRN Reason: Pain (moderate 4-6) Morphine Sulfate (Morphine) 2 mg IVPUSH Q2H PRN PRN Reason: Pain (severe 7-10) Stop: 06/14/18 17:54 Last Admin: 06/13/18 18:33 Dose: 2 mg Morphine Sulfate (Morphine) 2 mg IVPUSH Q2H PRN PRN Reason: Pain (severe 7-10) Stop: 06/14/18 17:54 Last Admin: 06/13/18 21:52 Dose: 2 mg Morphine Sulfate (Morphine) 2 mg IVPUSH ONETIME ONE Stop: 06/16/18 05:57 Last Admin: 06/16/18 06:06 Dose: 2 mg Nicotine (Habitrol) 14 mg TRDERM DAILY [facility] Potassium Chloride (Potassium Chloride) 40 meq PO ONETIME ONE Stop: 06/14/18 07:53 Last Admin: 06/14/18 08:39 Dose: 40 meq - Exam General: Alert, Oriented HEENT: Pupils Equal, Pupils Reactive, EOMI, Mucous Membr. Moist/[place] Neck: Supple Lungs: Clear to Auscultation, Normal Respiratory Effort Cardiovascular: Regular Rate, Regular Rhythm GI/Abdominal Exam: Normal Bowel Sounds, Soft, Non-Tender, No Organomegaly, No Distention, No Abnormal Bruit, No Mass, Pelvis Stable (Male) Exam: Other (refused genital examination) Back Exam: Normal Inspection, Full Range of Motion Extremities: Normal Inspection, Normal Range of Motion, Non-Tender, No Pedal Edema, Normal Capillary Refill Peripheral Pulses: 2+: Dorsalis Pedis (L), Dorsalis Pedis (R) Skin: Warm, Dry, Intact Psy/Mental Status: Alert, Other - Problem List Review Problem List Initiated/Reviewed/Updated: Yes - Plan Plan:: Assessment: #1. Neurosyphilis #2. HIV+ Plan: CSF VDRL lab is still pending - His CSF WBC is 45microL. Will treat for neurosyphilis. Continue pencillin for a minimum treatment duration of 10 days. Patient declines lab draw today. This AM, patient declined genital exam. I am unsure as to why he is complaining of pain this region given that syphilis is typically painless. Will attempt to re-examine with patients permission later on today to help rule out other etiologies of pain.
[2018-06-18] MEDS: Nicotine 14 MG/24 Hr Patch TRDERM SCH (09:00)
[2018-06-18] MEDS: Enoxaparin 40 MG/0.4 ML Syringe SUBCUT SCH (18:05)
[2018-06-18] MEDS: valACYclovir 500 MG Tab PO SCH (20:44)
[2018-06-19] MEDS: WATER IV SCH ×12 (01:30→20:29)
[2018-06-19] MEDS: DEXTROSE IV SCH ×12 (01:30→20:29)
[2018-06-19] MEDS: PENICILLIN POTASSIUM IV SCH ×12 (01:30→20:29)
[2018-06-19] MEDS: Acetaminophen 325 MG Tab PO PRN (02:02)
[2018-06-19] MEDS: oxyCODONE 5 MG Tab PO PRN ×4 (02:03→21:35)
[2018-06-19] MEDS: Morphine 2 MG/ML Syringe IVPUSH PRN ×2 (06:35→11:43)
[2018-06-19] MEDS: Nicotine 14 MG/24 Hr Patch TRDERM SCH (08:00)
[2018-06-19] MEDS: valACYclovir 500 MG Tab PO SCH ×2 (08:01→20:29)
--- NOTE | 2018-06-19 10:19 | PCM.PN ---
- General Info Date of Service: 06/19/18 Subjective Update: Patient had a temp of 101.1 overnight that responded to Tylenol. He states that he feels fine today, denying subjective fever, chills. Has no new complaints. Continues to be non-cooperative. - Review of Systems General: Reports: Other (negative except for hpi) - Patient Data Vitals - Most Recent: Last Vital Signs Temp 37.2 C 06/19/18 08:00 Pulse 65 06/19/18 08:00 Resp 18 06/19/18 08:00 BP 124/60 06/19/18 08:00 Pulse Ox 96 06/19/18 08:00 Weight - Most Recent: 84.776 kg I&O - Last 24 Hours: Intake & Output 06/18/18 06/19/18 06/19/18 22:59 06:59 14:59 Intake Total 820 1300 200 Output Total 800 Balance 820 500 200 Lab Results Last 24 Hours: Laboratory Results - last 24 hr 06/14/18 Range/Units 06:40 Chlamydia/GC Source URINE C.trachomatis RNA (TMA) Negative (Negative) N.gonorrhoeae RNA (TMA) Negative (Negative) Med Orders - Current: Current Medications Docusate Sodium (Colace) 100 mg PO BID PRN PRN Reason: Constipation Last Admin: 06/14/18 08:39 Dose: 100 mg Enoxaparin Sodium (Lovenox) 40 mg SUBCUT Q24H [facility] Last Admin: 06/18/18 18:05 Dose: 40 mg Penicillin G Potassium 4 (millunits/ Dextrose/Water) 100 mls @ 200 mls/hr IV Q4H [facility] Last Admin: 06/19/18 08:17 Dose: 200 mls/hr Morphine Sulfate (Morphine) 2 mg IVPUSH Q4H PRN PRN Reason: Pain Last Admin: 06/19/18 06:35 Dose: 2 mg Nicotine (Habitrol) 14 mg TRDERM DAILY [facility] Last Admin: 06/19/18 08:00 Dose: 14 mg Ondansetron HCl (Zofran Odt) 4 mg PO Q4H PRN PRN Reason: nausea, able to take PO Ondansetron HCl (Zofran) 4 mg IVPUSH Q4H PRN PRN Reason: Nausea Oxycodone HCl (Oxycodone) 5 mg PO Q6H PRN PRN Reason: Pain Last Admin: 06/19/18 08:15 Dose: 5 mg Polyethylene Glycol (Miralax) 17 gm PO DAILY PRN PRN Reason: Constipation Sodium Chloride (Saline Flush) 10 ml FLUSH ASDIRECTED PRN PRN Reason: Keep Vein Open Last Admin: 06/13/18 17:30 Dose: 10 ml Sodium Chloride (Saline Flush) 2.5 ml FLUSH ASDIRECTED PRN PRN Reason: Keep Vein Open Last Admin: 06/13/18 17:30 Dose: 2.5 ml Valacyclovir HCl (Valtrex) 1,000 mg PO BID [facility] Last Admin: 06/19/18 08:01 Dose: 1,000 mg Discontinued Medications Acetaminophen (Tylenol) 650 mg PO Q4H PRN PRN Reason: Pain (Mild 1-3)/fever Last Admin: 06/19/18 02:02 Dose: 650 mg Penicillin G Potassium 4 (millunits/ Dextrose/Water) 100 mls @ 200 mls/hr IV Q4H [facility] Stop: 06/27/18 18:46 Last Admin: 06/13/18 21:06 Dose: 200 mls/hr Ceftriaxone Sodium 2 gm/ (Sodium Chloride) 50 mls @ 100 mls/hr IV ONETIME ONE Stop: 06/17/18 05:29 Last Admin: 06/17/18 04:10 Dose: 100 mls/hr Ibuprofen (Motrin) 800 mg PO Q6H PRN PRN Reason: Pain (mild 1-3) Last Admin: 06/16/18 12:16 Dose: 800 mg Ketorolac Tromethamine (Toradol) 60 mg IM ONETIME ONE Stop: 06/13/18 17:13 Last Admin: 06/13/18 17:33 Dose: Not Given Ketorolac Tromethamine (Toradol) 30 mg IVPUSH ONETIME ONE Stop: 06/13/18 17:17 Last Admin: 06/13/18 17:25 Dose: 30 mg Ketorolac Tromethamine (Toradol) 30 mg IV Q6H PRN PRN Reason: Pain (moderate 4-6) Morphine Sulfate (Morphine) 2 mg IVPUSH Q2H PRN PRN Reason: Pain (severe 7-10) Stop: 06/14/18 17:54 Last Admin: 06/13/18 18:33 Dose: 2 mg Morphine Sulfate (Morphine) 2 mg IVPUSH Q2H PRN PRN Reason: Pain (severe 7-10) Stop: 06/14/18 17:54 Last Admin: 06/13/18 21:52 Dose: 2 mg Morphine Sulfate (Morphine) 2 mg IVPUSH ONETIME ONE Stop: 06/16/18 05:57 Last Admin: 06/16/18 06:06 Dose: 2 mg Nicotine (Habitrol) 14 mg TRDERM DAILY [facility] Potassium Chloride (Potassium Chloride) 40 meq PO ONETIME ONE Stop: 06/14/18 07:53 Last Admin: 06/14/18 08:39 Dose: 40 meq - Exam General: Alert, Oriented HEENT: Pupils Equal, Pupils Reactive, EOMI, Mucous Membr. Moist/[employer] Neck: Supple Lungs: Clear to Auscultation, Normal Respiratory Effort Cardiovascular: Regular Rate, Regular Rhythm GI/Abdominal Exam: Normal Bowel Sounds, Soft, Non-Tender, No Organomegaly, No Distention, No Abnormal Bruit, No Mass, Pelvis Stable (Male) Exam: Other (declined permission to do exam) Back Exam: Normal Inspection, Full Range of Motion Extremities: Normal Inspection, Normal Range of Motion, Non-Tender, No Pedal Edema, Normal Capillary Refill Peripheral Pulses: 2+: Dorsalis Pedis (L), Dorsalis Pedis (R) Skin: Other (no new rashes) Psy/Mental Status: Alert - Problem List Review Problem List Initiated/Reviewed/Updated: Yes - My Orders Last 24 Hours: My Active Orders 06/18/18 21:00 valACYclovir [Valtrex] 1,000 mg PO BID 06/19/18 09:00 HEPATITIS PANEL (4) [REF] Routine - Plan Plan:: Assessment: #1. Neurosyphilis #2. HIV+ Plan: Will DC tylenol, ibuprofen to prevent masking of fever. Will obtain labs as ordered for fever work up. Patient is agreeable for transfer to [place] should fever re-occur. He continues to be non-cooperative and not allowing me to do a genital exam to assess for cause of pain. Will continue to monitor and keep on penicillin.
--- NOTE | 2018-06-19 11:54 | CR ---
EXAMINATION: Portable chest radiograph. HISTORY: Fever. FINDINGS: The trachea is midline. The cardiomediastinal silhouette is within normal limits. No pulmonary infiltrates, effusions or pneumothorax. Osseous structures appear unremarkable. IMPRESSION: No acute cardiopulmonary process.
[2018-06-19 13:11] LABS: CHLORIDE,CL 103 mmol/L (98-107); SODIUM,NA 136 mmol/L (136-148)
[2018-06-19] MEDS: Enoxaparin 40 MG/0.4 ML Syringe SUBCUT SCH (17:16)
[2018-06-20] MEDS: DEXTROSE IV SCH ×12 (00:42→20:58)
[2018-06-20] MEDS: WATER IV SCH ×12 (00:42→20:58)
[2018-06-20] MEDS: PENICILLIN POTASSIUM IV SCH ×12 (00:42→20:58)
[2018-06-20] MEDS: oxyCODONE 5 MG Tab PO PRN ×3 (03:45→18:38)
[2018-06-20] MEDS: valACYclovir 500 MG Tab PO SCH ×2 (08:32→21:05)
[2018-06-20] MEDS: Nicotine 14 MG/24 Hr Patch TRDERM SCH (08:32)
[2018-06-20] MEDS: Morphine 2 MG/ML Syringe IVPUSH PRN ×3 (08:39→22:33)
--- NOTE | 2018-06-20 10:00 | PCM.PN ---
<Delmer Easton - Last Filed: 06/20/18 09:58> - General Info Date of Service: 06/20/18 Subjective Update: Patient has no new complaints. Continues to be difficult and refusing vital signs from nursing staff. - Review of Systems General: Reports: Other (negative except for hpi) - Patient Data Vitals - Most Recent: Last Vital Signs Temp 36.1 C 06/20/18 08:00 Pulse 56 L 06/20/18 08:00 Resp 17 06/20/18 08:00 BP 120/58 L 06/20/18 08:00 Pulse Ox 97 06/20/18 08:00 Weight - Most Recent: 84.776 kg I&O - Last 24 Hours: Intake & Output 06/19/18 06/20/18 06/20/18 22:59 06:59 14:59 Intake Total 700 500 Output Total 210 Balance 490 500 Lab Results Last 24 Hours: Laboratory Results - last 24 hr 06/13/18 06/13/18 06/19/18 Range/Units 17:15 17:27 12:05 WBC 10.29 (4.0-11.0) K/uL RBC 4.67 (4.50-5.90) M/uL Hgb 14.0 (13.0-17.0) g/dL Hct 41.0 (38.0-50.0) % MCV 87.8 (80.0-98.0) fL MCH 30.0 (27.0-32.0) pg MCHC 34.1 (31.0-37.0) g/dL RDW Std Deviation 43.1 (28.0-62.0) fl RDW Coeff of Zari 14 (11.0-15.0) % Plt Count 235 (150-400) K/uL MPV 10.90 (7.40-12.00) fL Add Manual Diff YES Neutrophils % (Manual) 21 L (48.0-80.0) % Band Neutrophils % 2 % Lymphocytes % (Manual) 74 H (16.0-40.0) % Monocytes % (Manual) 3 (0.0-15.0) % Nucleated RBC % 0.0 /100WBC Absolute Seg Neuts 2.2 (1.4-5.7) Band Neutrophils # 0.2 Lymphocytes # (Manual) 7.6 H (0.6-2.4) Monocytes # (Manual) 0.3 (0.0-0.8) Nucleated RBCs # 0 K/uL Sodium (136-148) mmol/L Potassium (3.5-5.1) mmol/L Chloride (98-107) mmol/L Carbon Dioxide (21.0-32.0) mmol/L BUN (7.0-18.0) mg/dL Creatinine (0.8-1.3) mg/dL Est Cr Clr Drug Dosing mL/min Estimated GFR (MDRD) ml/min Glucose (74-106) mg/dL Calcium (8.5-10.1) mg/dL Total Bilirubin (0.2-1.0) mg/dL AST (15-37) IU/L ALT (14-63) IU/L Alkaline Phosphatase (46-116) U/L Total Protein (6.4-8.2) g/dL Albumin (3.4-5.0) g/dL Globulin (2.6-4.0) g/dL Albumin/Globulin Ratio (0.9-1.6) Urine Color Urine Appearance Urine pH (5.0-8.0) Ur Specific [place] (1.001-1.035) Urine Protein (NEGATIVE) mg/dL Urine Glucose (UA) (NEGATIVE) mg/dL Urine Ketones (NEGATIVE) mg/dL Urine Occult Blood (NEGATIVE) Urine Nitrite (NEGATIVE) Urine Bilirubin (NEGATIVE) Urine Urobilinogen (<2.0) EU/dL Ur Leukocyte Esterase (NEGATIVE) Urine RBC (0-2/HPF) Urine WBC (0-5/HPF) Ur Epithelial Cells (NONE-FEW) Urine Bacteria (NEGATIVE) CSF VDRL Non Reactive (Non Letty:<1:1) RPR Titer Add Testing 1:128 H T.pallidum Ab (TP-PA) Reactive H (Non Reactive) 06/19/18 06/19/18 Range/Units 12:05 15:47 WBC (4.0-11.0) K/uL RBC (4.50-5.90) M/uL Hgb (13.0-17.0) g/dL Hct (38.0-50.0) % MCV (80.0-98.0) fL MCH (27.0-32.0) pg MCHC (31.0-37.0) g/dL RDW Std Deviation (28.0-62.0) fl RDW Coeff of Zari (11.0-15.0) % Plt Count (150-400) K/uL MPV (7.40-12.00) fL Add Manual Diff Neutrophils % (Manual) (48.0-80.0) % Band Neutrophils % % Lymphocytes % (Manual) (16.0-40.0) % Monocytes % (Manual) (0.0-15.0) % Nucleated RBC % /100WBC Absolute Seg Neuts (1.4-5.7) Band Neutrophils # Lymphocytes # (Manual) (0.6-2.4) Monocytes # (Manual) (0.0-0.8) Nucleated RBCs # K/uL Sodium 136 (136-148) mmol/L Potassium 4.4 (3.5-5.1) mmol/L Chloride 103 (98-107) mmol/L Carbon Dioxide 28.7 (21.0-32.0) mmol/L BUN 12 (7.0-18.0) mg/dL Creatinine 0.9 (0.8-1.3) mg/dL Est Cr Clr Drug Dosing 150.95 mL/min Estimated GFR (MDRD) > 60.0 ml/min Glucose 92 (74-106) mg/dL Calcium 8.9 (8.5-10.1) mg/dL Total Bilirubin 0.2 (0.2-1.0) mg/dL AST 35 (15-37) IU/L ALT 109 H (14-63) IU/L Alkaline Phosphatase 169 H (46-116) U/L Total Protein 6.9 (6.4-8.2) g/dL Albumin 2.7 L (3.4-5.0) g/dL Globulin 4.2 H (2.6-4.0) g/dL Albumin/Globulin Ratio 0.6 L (0.9-1.6) Urine Color YELLOW Urine Appearance CLEAR Urine pH 6.5 (5.0-8.0) Ur Specific [place] 1.025 (1.001-1.035) Urine Protein NEGATIVE (NEGATIVE) mg/dL Urine Glucose (UA) NEGATIVE (NEGATIVE) mg/dL Urine Ketones NEGATIVE (NEGATIVE) mg/dL Urine Occult Blood NEGATIVE (NEGATIVE) Urine Nitrite NEGATIVE (NEGATIVE) Urine Bilirubin NEGATIVE (NEGATIVE) Urine Urobilinogen 1.0 (<2.0) EU/dL Ur Leukocyte Esterase NEGATIVE (NEGATIVE) Urine RBC 0-1 (0-2/HPF) Urine WBC 0-1 (0-5/HPF) Ur Epithelial Cells RARE (NONE-FEW) Urine Bacteria RARE (NEGATIVE) CSF VDRL (Non Letty:<1:1) RPR Titer Add Testing T.pallidum Ab (TP-PA) (Non Reactive) Med Orders - Current: Current Medications Docusate Sodium (Colace) 100 mg PO BID PRN PRN Reason: Constipation Last Admin: 06/14/18 08:39 Dose: 100 mg Enoxaparin Sodium (Lovenox) 40 mg SUBCUT Q24H [facility] Last Admin: 06/19/18 17:16 Dose: 40 mg Penicillin G Potassium 4 (millunits/ Dextrose/Water) 100 mls @ 200 mls/hr IV Q4H [facility] Last Admin: 06/20/18 08:32 Dose: 200 mls/hr Morphine Sulfate (Morphine) 2 mg IVPUSH Q4H PRN PRN Reason: Pain Last Admin: 06/20/18 08:39 Dose: 2 mg Nicotine (Habitrol) 14 mg TRDERM DAILY [facility] Last Admin: 06/20/18 08:32 Dose: 14 mg Ondansetron HCl (Zofran Odt) 4 mg PO Q4H PRN PRN Reason: nausea, able to take PO Ondansetron HCl (Zofran) 4 mg IVPUSH Q4H PRN PRN Reason: Nausea Oxycodone HCl (Oxycodone) 5 mg PO Q6H PRN PRN Reason: Pain Last Admin: 06/20/18 03:45 Dose: 5 mg Polyethylene Glycol (Miralax) 17 gm PO DAILY PRN PRN Reason: Constipation Sodium Chloride (Saline Flush) 10 ml FLUSH ASDIRECTED PRN PRN Reason: Keep Vein Open Last Admin: 06/13/18 17:30 Dose: 10 ml Sodium Chloride (Saline Flush) 2.5 ml FLUSH ASDIRECTED PRN PRN Reason: Keep Vein Open Last Admin: 06/13/18 17:30 Dose: 2.5 ml Valacyclovir HCl (Valtrex) 1,000 mg PO BID [facility] Last Admin: 06/20/18 08:32 Dose: 1,000 mg Discontinued Medications Acetaminophen (Tylenol) 650 mg PO Q4H PRN PRN Reason: Pain (Mild 1-3)/fever Last Admin: 06/19/18 02:02 Dose: 650 mg Penicillin G Potassium 4 (millunits/ Dextrose/Water) 100 mls @ 200 mls/hr IV Q4H [facility] Stop: 06/27/18 18:46 Last Admin: 06/13/18 21:06 Dose: 200 mls/hr Ceftriaxone Sodium 2 gm/ (Sodium Chloride) 50 mls @ 100 mls/hr IV ONETIME ONE Stop: 06/17/18 05:29 Last Admin: 06/17/18 04:10 Dose: 100 mls/hr Ibuprofen (Motrin) 800 mg PO Q6H PRN PRN Reason: Pain (mild 1-3) Last Admin: 06/16/18 12:16 Dose: 800 mg Ketorolac Tromethamine (Toradol) 60 mg IM ONETIME ONE Stop: 06/13/18 17:13 Last Admin: 06/13/18 17:33 Dose: Not Given Ketorolac Tromethamine (Toradol) 30 mg IVPUSH ONETIME ONE Stop: 06/13/18 17:17 Last Admin: 06/13/18 17:25 Dose: 30 mg Ketorolac Tromethamine (Toradol) 30 mg IV Q6H PRN PRN Reason: Pain (moderate 4-6) Morphine Sulfate (Morphine) 2 mg IVPUSH Q2H PRN PRN Reason: Pain (severe 7-10) Stop: 06/14/18 17:54 Last Admin: 06/13/18 18:33 Dose: 2 mg Morphine Sulfate (Morphine) 2 mg IVPUSH Q2H PRN PRN Reason: Pain (severe 7-10) Stop: 06/14/18 17:54 Last Admin: 06/13/18 21:52 Dose: 2 mg Morphine Sulfate (Morphine) 2 mg IVPUSH ONETIME ONE Stop: 06/16/18 05:57 Last Admin: 06/16/18 06:06 Dose: 2 mg Nicotine (Habitrol) 14 mg TRDERM DAILY [facility] Potassium Chloride (Potassium Chloride) 40 meq PO ONETIME ONE Stop: 06/14/18 07:53 Last Admin: 06/14/18 08:39 Dose: 40 meq - Exam General: Alert, Oriented HEENT: Pupils Equal, Pupils Reactive, EOMI, Mucous Membr. Moist/[employer] Neck: Supple Lungs: Clear to Auscultation, Normal Respiratory Effort Cardiovascular: Regular Rate, Regular Rhythm GI/Abdominal Exam: Normal Bowel Sounds, Soft, Non-Tender, No Organomegaly, No Distention, No Abnormal Bruit, No Mass, Pelvis Stable Back Exam: Normal Inspection, Full Range of Motion Extremities: Normal Inspection, Normal Range of Motion, Non-Tender, No Pedal Edema, Normal Capillary Refill Peripheral Pulses: 2+: Dorsalis Pedis (L), Dorsalis Pedis (R) - Problem List Review Problem List Initiated/Reviewed/Updated: Yes - My Orders Last 24 Hours: My Active Orders 06/19/18 12:05 HEPATITIS PANEL (4) [REF] Routine - Plan Plan:: Assessment: #1. Neurosyphilis #2. HIV+ Plan: Continue to treat with IV penicillin for a total treatment duration of 14 days. He is to f/u with infectious disease in [place] upon completion. Department of health nurse is to visit with the patient in the near future given his diagnosis. <Siva Wilder - Last Filed: 06/21/18 10:21> - General Info Subjective Update: I have examined the patient independently of site medical director. I have discussed the case with him. I agree with the assessment and plan of care for this patient as outlined by him. Please see orders. ID as been consulted from Charlee Abraham. - Patient Data Vitals - Most Recent: Last Vital Signs Temp 36.6 C 06/21/18 07:37 Pulse 72 06/21/18 07:37 Resp 18 06/21/18 07:37 BP 100/52 L 06/21/18 07:37 Pulse Ox 97 06/21/18 07:37 I&O - Last 24 Hours: Intake & Output 06/20/18 06/21/18 06/21/18 22:59 06:59 14:59 Intake Total 1320 600 Balance 1320 600 Lab Results Last 24 Hours: Laboratory Results - last 24 hr 06/14/18 06/19/18 Range/Units 09:07 12:05 Hepatitis A IgM Ab Negative (Negative) Hep Bs Antigen Negative (Negative) Hep B Core IgM Ab Negative (Negative) Hepatitis C Antibody <0.1 (0.0-0.9) s/co ratio HIV-1 RNA (PCR) >10,000,000 copies/mL HIV-1 RNA (PCR) log10 Not Reportable Solomon Results Last 24 Hours: Microbiology 06/19/18 15:47 Urine Culture - Final Urine, Clean Catch No Growth 06/19/18 12:19 Aerobic Blood Culture - Preliminary Blood - Venous - Lab Draw NO GROWTH AFTER 1 DAY Anaerobic Blood Culture - Preliminary NO GROWTH AFTER 1 DAY 06/19/18 12:05 Aerobic Blood Culture - Preliminary Blood - Venous NO GROWTH AFTER 1 DAY Anaerobic Blood Culture - Preliminary NO GROWTH AFTER 1 DAY Med Orders - Current: Current Medications Docusate Sodium (Colace) 100 mg PO BID PRN PRN Reason: Constipation Last Admin: 06/14/18 08:39 Dose: 100 mg Enoxaparin Sodium (Lovenox) 40 mg SUBCUT Q24H [facility] Last Admin: 06/20/18 17:18 Dose: 40 mg Penicillin G Potassium 4 (millunits/ Dextrose/Water) 100 mls @ 200 mls/hr IV Q4H [facility] Last Admin: 06/21/18 08:59 Dose: 200 mls/hr Morphine Sulfate (Morphine) 2 mg IVPUSH Q4H PRN PRN Reason: Pain Last Admin: 06/20/18 22:33 Dose: 2 mg Nicotine (Habitrol) 14 mg TRDERM DAILY [facility] Last Admin: 06/21/18 08:37 Dose: 14 mg Ondansetron HCl (Zofran Odt) 4 mg PO Q4H PRN PRN Reason: nausea, able to take PO Ondansetron HCl (Zofran) 4 mg IVPUSH Q4H PRN PRN Reason: Nausea Oxycodone HCl (Oxycodone) 5 mg PO Q6H PRN PRN Reason: Pain Last Admin: 06/21/18 07:43 Dose: 5 mg Polyethylene Glycol (Miralax) 17 gm PO DAILY PRN PRN Reason: Constipation Sodium Chloride (Saline Flush) 10 ml FLUSH ASDIRECTED PRN PRN Reason: Keep Vein Open Last Admin: 06/13/18 17:30 Dose: 10 ml Sodium Chloride (Saline Flush) 2.5 ml FLUSH ASDIRECTED PRN PRN Reason: Keep Vein Open Last Admin: 06/13/18 17:30 Dose: 2.5 ml Valacyclovir HCl (Valtrex) 1,000 mg PO BID [facility] Last Admin: 06/21/18 08:37 Dose: 1,000 mg Discontinued Medications Acetaminophen (Tylenol) 650 mg PO Q4H PRN PRN Reason: Pain (Mild 1-3)/fever Last Admin: 06/19/18 02:02 Dose: 650 mg Penicillin G Potassium 4 (millunits/ Dextrose/Water) 100 mls @ 200 mls/hr IV Q4H [facility] Stop: 06/27/18 18:46 Last Admin: 06/13/18 21:06 Dose: 200 mls/hr Ceftriaxone Sodium 2 gm/ (Sodium Chloride) 50 mls @ 100 mls/hr IV ONETIME ONE Stop: 06/17/18 05:29 Last Admin: 06/17/18 04:10 Dose: 100 mls/hr Ibuprofen (Motrin) 800 mg PO Q6H PRN PRN Reason: Pain (mild 1-3) Last Admin: 06/16/18 12:16 Dose: 800 mg Ketorolac Tromethamine (Toradol) 60 mg IM ONETIME ONE Stop: 06/13/18 17:13 Last Admin: 06/13/18 17:33 Dose: Not Given Ketorolac Tromethamine (Toradol) 30 mg IVPUSH ONETIME ONE Stop: 06/13/18 17:17 Last Admin: 06/13/18 17:25 Dose: 30 mg Ketorolac Tromethamine (Toradol) 30 mg IV Q6H PRN PRN Reason: Pain (moderate 4-6) Morphine Sulfate (Morphine) 2 mg IVPUSH Q2H PRN PRN Reason: Pain (severe 7-10) Stop: 06/14/18 17:54 Last Admin: 06/13/18 18:33 Dose: 2 mg Morphine Sulfate (Morphine) 2 mg IVPUSH Q2H PRN PRN Reason: Pain (severe 7-10) Stop: 06/14/18 17:54 Last Admin: 06/13/18 21:52 Dose: 2 mg Morphine Sulfate (Morphine) 2 mg IVPUSH ONETIME ONE Stop: 06/16/18 05:57 Last Admin: 06/16/18 06:06 Dose: 2 mg Nicotine (Habitrol) 14 mg TRDERM DAILY [facility] Potassium Chloride (Potassium Chloride) 40 meq PO ONETIME ONE Stop: 06/14/18 07:53 Last Admin: 06/14/18 08:39 Dose: 40 meq
[2018-06-20] MEDS: Enoxaparin 40 MG/0.4 ML Syringe SUBCUT SCH (17:18)
[2018-06-21] MEDS: DEXTROSE IV SCH ×12 (00:32→21:36)
[2018-06-21] MEDS: PENICILLIN POTASSIUM IV SCH ×12 (00:32→21:36)
[2018-06-21] MEDS: WATER IV SCH ×12 (00:32→21:36)
[2018-06-21] MEDS: oxyCODONE 5 MG Tab PO PRN ×4 (00:38→21:36)
[2018-06-21] MEDS: Nicotine 14 MG/24 Hr Patch TRDERM SCH (08:37)
[2018-06-21] MEDS: valACYclovir 500 MG Tab PO SCH ×2 (08:37→21:36)
--- NOTE | 2018-06-21 08:55 | PCM.PN ---
<Delmer Easton - Last Filed: 06/21/18 08:52> - General Info Date of Service: 06/21/18 Subjective Update: Has no new complaints. Denies fever nausea chills vomiting. No new rashes. - Review of Systems General: Reports: Other (negative except for hpi ) - Patient Data Vitals - Most Recent: Last Vital Signs Temp 36.6 C 06/21/18 07:37 Pulse 72 06/21/18 07:37 Resp 18 06/21/18 07:37 BP 100/52 L 06/21/18 07:37 Pulse Ox 97 06/21/18 07:37 Weight - Most Recent: 84.776 kg I&O - Last 24 Hours: Intake & Output 06/20/18 06/21/18 06/21/18 22:59 06:59 14:59 Intake Total 1320 600 Balance 1320 600 Lab Results Last 24 Hours: Laboratory Results - last 24 hr 06/14/18 06/19/18 Range/Units 09:07 12:05 Hepatitis A IgM Ab Negative (Negative) Hep Bs Antigen Negative (Negative) Hep B Core IgM Ab Negative (Negative) Hepatitis C Antibody <0.1 (0.0-0.9) s/co ratio HIV-1 RNA (PCR) >10,000,000 copies/mL HIV-1 RNA (PCR) log10 Not Reportable Solomon Results Last 24 Hours: Microbiology 06/19/18 12:19 Aerobic Blood Culture - Preliminary Blood - Venous - Lab Draw NO GROWTH AFTER 1 DAY Anaerobic Blood Culture - Preliminary NO GROWTH AFTER 1 DAY 06/19/18 12:05 Aerobic Blood Culture - Preliminary Blood - Venous NO GROWTH AFTER 1 DAY Anaerobic Blood Culture - Preliminary NO GROWTH AFTER 1 DAY Med Orders - Current: Current Medications Docusate Sodium (Colace) 100 mg PO BID PRN PRN Reason: Constipation Last Admin: 06/14/18 08:39 Dose: 100 mg Enoxaparin Sodium (Lovenox) 40 mg SUBCUT Q24H [facility] Last Admin: 06/20/18 17:18 Dose: 40 mg Penicillin G Potassium 4 (millunits/ Dextrose/Water) 100 mls @ 200 mls/hr IV Q4H [facility] Last Admin: 06/21/18 04:49 Dose: 200 mls/hr Morphine Sulfate (Morphine) 2 mg IVPUSH Q4H PRN PRN Reason: Pain Last Admin: 06/20/18 22:33 Dose: 2 mg Nicotine (Habitrol) 14 mg TRDERM DAILY [facility] Last Admin: 06/21/18 08:37 Dose: 14 mg Ondansetron HCl (Zofran Odt) 4 mg PO Q4H PRN PRN Reason: nausea, able to take PO Ondansetron HCl (Zofran) 4 mg IVPUSH Q4H PRN PRN Reason: Nausea Oxycodone HCl (Oxycodone) 5 mg PO Q6H PRN PRN Reason: Pain Last Admin: 06/21/18 07:43 Dose: 5 mg Polyethylene Glycol (Miralax) 17 gm PO DAILY PRN PRN Reason: Constipation Sodium Chloride (Saline Flush) 10 ml FLUSH ASDIRECTED PRN PRN Reason: Keep Vein Open Last Admin: 06/13/18 17:30 Dose: 10 ml Sodium Chloride (Saline Flush) 2.5 ml FLUSH ASDIRECTED PRN PRN Reason: Keep Vein Open Last Admin: 06/13/18 17:30 Dose: 2.5 ml Valacyclovir HCl (Valtrex) 1,000 mg PO BID [facility] Last Admin: 06/21/18 08:37 Dose: 1,000 mg Discontinued Medications Acetaminophen (Tylenol) 650 mg PO Q4H PRN PRN Reason: Pain (Mild 1-3)/fever Last Admin: 06/19/18 02:02 Dose: 650 mg Penicillin G Potassium 4 (millunits/ Dextrose/Water) 100 mls @ 200 mls/hr IV Q4H [facility] Stop: 06/27/18 18:46 Last Admin: 06/13/18 21:06 Dose: 200 mls/hr Ceftriaxone Sodium 2 gm/ (Sodium Chloride) 50 mls @ 100 mls/hr IV ONETIME ONE Stop: 06/17/18 05:29 Last Admin: 06/17/18 04:10 Dose: 100 mls/hr Ibuprofen (Motrin) 800 mg PO Q6H PRN PRN Reason: Pain (mild 1-3) Last Admin: 06/16/18 12:16 Dose: 800 mg Ketorolac Tromethamine (Toradol) 60 mg IM ONETIME ONE Stop: 06/13/18 17:13 Last Admin: 06/13/18 17:33 Dose: Not Given Ketorolac Tromethamine (Toradol) 30 mg IVPUSH ONETIME ONE Stop: 06/13/18 17:17 Last Admin: 06/13/18 17:25 Dose: 30 mg Ketorolac Tromethamine (Toradol) 30 mg IV Q6H PRN PRN Reason: Pain (moderate 4-6) Morphine Sulfate (Morphine) 2 mg IVPUSH Q2H PRN PRN Reason: Pain (severe 7-10) Stop: 06/14/18 17:54 Last Admin: 06/13/18 18:33 Dose: 2 mg Morphine Sulfate (Morphine) 2 mg IVPUSH Q2H PRN PRN Reason: Pain (severe 7-10) Stop: 06/14/18 17:54 Last Admin: 06/13/18 21:52 Dose: 2 mg Morphine Sulfate (Morphine) 2 mg IVPUSH ONETIME ONE Stop: 06/16/18 05:57 Last Admin: 06/16/18 06:06 Dose: 2 mg Nicotine (Habitrol) 14 mg TRDERM DAILY [facility] Potassium Chloride (Potassium Chloride) 40 meq PO ONETIME ONE Stop: 06/14/18 07:53 Last Admin: 06/14/18 08:39 Dose: 40 meq - Exam General: Alert, Oriented HEENT: Pupils Equal, Pupils Reactive, EOMI, Mucous Membr. Moist/[place] Neck: Supple Lungs: Clear to Auscultation, Normal Respiratory Effort Cardiovascular: Regular Rate, Regular Rhythm GI/Abdominal Exam: Normal Bowel Sounds, Soft, Non-Tender, No Organomegaly, No Distention, No Abnormal Bruit, No Mass, Pelvis Stable Back Exam: Normal Inspection, Full Range of Motion Extremities: Normal Inspection, Normal Range of Motion, Non-Tender, No Pedal Edema, Normal Capillary Refill Peripheral Pulses: 2+: Dorsalis Pedis (L), Dorsalis Pedis (R) Skin: Warm, Dry, Intact Wound/Incisions: Healing Well Neurological: No New Focal Deficit Psy/Mental Status: Alert, Normal Affect, Normal Mood - Problem List Review Problem List Initiated/Reviewed/Updated: Yes - My Orders Last 24 Hours: My Active Orders 06/21/18 10:00 CBC WITH AUTO DIFF [HEME] Routine COMPREHENSIVE METABOLIC PN,CMP [CHEM] Routine - Plan Plan:: Assessment: #1. Neurosyphilis #2. HIV+ Plan: Continue to treat with IV penicillin for a total treatment duration of 14 days. He is to f/u with infectious disease in [place] upon completion. Department of health nurse is to visit with the patient in the near future given his diagnosis. Hepatitis panel is negative. Patient is agreeable to labs today, will follow up on those once available. <Siva Wilder - Last Filed: 06/21/18 10:22> - General Info Subjective Update: I have examined the patient independently of medical delivery technician. I have discussed the case with him. I agree with the assessment and plan of care for this patient as outlined by him. Please see orders. - Patient Data Vitals - Most Recent: Last Vital Signs Temp 36.6 C 06/21/18 07:37 Pulse 72 06/21/18 07:37 Resp 18 06/21/18 07:37 BP 100/52 L 06/21/18 07:37 Pulse Ox 97 06/21/18 07:37 I&O - Last 24 Hours: Intake & Output 06/20/18 06/21/18 06/21/18 22:59 06:59 14:59 Intake Total 1320 600 Balance 1320 600 Lab Results Last 24 Hours: Laboratory Results - last 24 hr 06/14/18 06/19/18 Range/Units 09:07 12:05 Hepatitis A IgM Ab Negative (Negative) Hep Bs Antigen Negative (Negative) Hep B Core IgM Ab Negative (Negative) Hepatitis C Antibody <0.1 (0.0-0.9) s/co ratio HIV-1 RNA (PCR) >10,000,000 copies/mL HIV-1 RNA (PCR) log10 Not Reportable Solomon Results Last 24 Hours: Microbiology 06/19/18 15:47 Urine Culture - Final Urine, Clean Catch No Growth 06/19/18 12:19 Aerobic Blood Culture - Preliminary Blood - Venous - Lab Draw NO GROWTH AFTER 1 DAY Anaerobic Blood Culture - Preliminary NO GROWTH AFTER 1 DAY 06/19/18 12:05 Aerobic Blood Culture - Preliminary Blood - Venous NO GROWTH AFTER 1 DAY Anaerobic Blood Culture - Preliminary NO GROWTH AFTER 1 DAY Med Orders - Current: Current Medications Docusate Sodium (Colace) 100 mg PO BID PRN PRN Reason: Constipation Last Admin: 06/14/18 08:39 Dose: 100 mg Enoxaparin Sodium (Lovenox) 40 mg SUBCUT Q24H [facility] Last Admin: 01/17/19 17:18 Dose: 40 mg Penicillin G Potassium 4 (millunits/ Dextrose/Water) 100 mls @ 200 mls/hr IV Q4H [facility] Last Admin: 06/21/18 08:59 Dose: 200 mls/hr Morphine Sulfate (Morphine) 2 mg IVPUSH Q4H PRN PRN Reason: Pain Last Admin: 06/20/18 22:33 Dose: 2 mg Nicotine (Habitrol) 14 mg TRDERM DAILY [facility] Last Admin: 06/21/18 08:37 Dose: 14 mg Ondansetron HCl (Zofran Odt) 4 mg PO Q4H PRN PRN Reason: nausea, able to take PO Ondansetron HCl (Zofran) 4 mg IVPUSH Q4H PRN PRN Reason: Nausea Oxycodone HCl (Oxycodone) 5 mg PO Q6H PRN PRN Reason: Pain Last Admin: 06/21/18 07:43 Dose: 5 mg Polyethylene Glycol (Miralax) 17 gm PO DAILY PRN PRN Reason: Constipation Sodium Chloride (Saline Flush) 10 ml FLUSH ASDIRECTED PRN PRN Reason: Keep Vein Open Last Admin: 06/13/18 17:30 Dose: 10 ml Sodium Chloride (Saline Flush) 2.5 ml FLUSH ASDIRECTED PRN PRN Reason: Keep Vein Open Last Admin: 06/13/18 17:30 Dose: 2.5 ml Valacyclovir HCl (Valtrex) 1,000 mg PO BID [facility] Last Admin: 06/21/18 08:37 Dose: 1,000 mg Discontinued Medications Acetaminophen (Tylenol) 650 mg PO Q4H PRN PRN Reason: Pain (Mild 1-3)/fever Last Admin: 06/19/18 02:02 Dose: 650 mg Penicillin G Potassium 4 (millunits/ Dextrose/Water) 100 mls @ 200 mls/hr IV Q4H [facility] Stop: 06/27/18 18:46 Last Admin: 06/13/18 21:06 Dose: 200 mls/hr Ceftriaxone Sodium 2 gm/ (Sodium Chloride) 50 mls @ 100 mls/hr IV ONETIME ONE Stop: 06/17/18 05:29 Last Admin: 06/17/18 04:10 Dose: 100 mls/hr Ibuprofen (Motrin) 800 mg PO Q6H PRN PRN Reason: Pain (mild 1-3) Last Admin: 06/16/18 12:16 Dose: 800 mg Ketorolac Tromethamine (Toradol) 60 mg IM ONETIME ONE Stop: 06/13/18 17:13 Last Admin: 06/13/18 17:33 Dose: Not Given Ketorolac Tromethamine (Toradol) 30 mg IVPUSH ONETIME ONE Stop: 06/13/18 17:17 Last Admin: 06/13/18 17:25 Dose: 30 mg Ketorolac Tromethamine (Toradol) 30 mg IV Q6H PRN PRN Reason: Pain (moderate 4-6) Morphine Sulfate (Morphine) 2 mg IVPUSH Q2H PRN PRN Reason: Pain (severe 7-10) Stop: 06/14/18 17:54 Last Admin: 06/13/18 18:33 Dose: 2 mg Morphine Sulfate (Morphine) 2 mg IVPUSH Q2H PRN PRN Reason: Pain (severe 7-10) Stop: 06/14/18 17:54 Last Admin: 06/13/18 21:52 Dose: 2 mg Morphine Sulfate (Morphine) 2 mg IVPUSH ONETIME ONE Stop: 06/16/18 05:57 Last Admin: 06/16/18 06:06 Dose: 2 mg Nicotine (Habitrol) 14 mg TRDERM DAILY [facility] Potassium Chloride (Potassium Chloride) 40 meq PO ONETIME ONE Stop: 06/14/18 07:53 Last Admin: 06/14/18 08:39 Dose: 40 meq
[2018-06-21 10:48] LABS: CHLORIDE,CL 101 mmol/L (98-107); SODIUM,NA 138 mmol/L (136-148)
[2018-06-21] MEDS: Morphine 2 MG/ML Syringe IVPUSH PRN ×2 (11:59→19:47)
[2018-06-21] MEDS: Enoxaparin 40 MG/0.4 ML Syringe SUBCUT SCH (17:22)
[2018-06-22] MEDS: WATER IV SCH ×12 (01:59→20:26)
[2018-06-22] MEDS: PENICILLIN POTASSIUM IV SCH ×12 (01:59→20:26)
[2018-06-22] MEDS: DEXTROSE IV SCH ×12 (01:59→20:26)
[2018-06-22] MEDS: oxyCODONE 5 MG Tab PO PRN ×3 (03:16→16:44)
--- NOTE | 2018-06-22 08:16 | PCM.PN ---
<Delmer Easton - Last Filed: 06/22/18 08:16> - General Info Date of Service: 06/22/18 Subjective Update: day 9 of admission. Patient is more angry than usual today, says he has no new complaints, denying fever nausea vomiting or new rashes. Continues to swear at nurses and myself. - Review of Systems General: Reports: Other (see hpi) - Patient Data Vitals - Most Recent: Last Vital Signs Temp 36.1 C 06/22/18 03:00 Pulse 83 06/22/18 03:00 Resp 16 06/22/18 03:00 BP 100/48 L 06/22/18 03:00 Pulse Ox 98 06/22/18 03:00 Weight - Most Recent: 84.776 kg I&O - Last 24 Hours: Intake & Output 06/21/18 06/22/18 06/22/18 22:59 06:59 14:59 Intake Total 0 1850 Balance 1899 1850 Lab Results Last 24 Hours: Laboratory Results - last 24 hr 06/21/18 06/21/18 Range/Units 10:00 10:00 WBC 10.67 (4.0-11.0) K/uL RBC 4.99 (4.50-5.90) M/uL Hgb 15.3 (13.0-17.0) g/dL Hct 44.5 (38.0-50.0) % MCV 89.2 (80.0-98.0) fL MCH 30.7 (27.0-32.0) pg MCHC 34.4 (31.0-37.0) g/dL RDW Std Deviation 43.1 (28.0-62.0) fl RDW Coeff of Zari 14 (11.0-15.0) % Plt Count 275 (150-400) K/uL MPV 10.10 (7.40-12.00) fL Add Manual Diff YES Neutrophils % (Manual) 36 L (48.0-80.0) % Band Neutrophils % 2 % Lymphocytes % (Manual) 59 H (16.0-40.0) % Monocytes % (Manual) 2 (0.0-15.0) % Eosinophils % (Manual) 1 (0.0-7.0) % Nucleated RBC % 0.0 /100WBC Absolute Seg Neuts 3.8 (1.4-5.7) Band Neutrophils # 0.2 Lymphocytes # (Manual) 6.3 H (0.6-2.4) Monocytes # (Manual) 0.2 (0.0-0.8) Eosinophils # (Manual) 0.1 (0.0-0.7) Nucleated RBCs # 0 K/uL Sodium 138 (136-148) mmol/L Potassium 4.5 (3.5-5.1) mmol/L Chloride 101 (98-107) mmol/L Carbon Dioxide 29.9 (21.0-32.0) mmol/L BUN 15 (7.0-18.0) mg/dL Creatinine 0.9 (0.8-1.3) mg/dL Est Cr Clr Drug Dosing 150.95 mL/min Estimated GFR (MDRD) > 60.0 ml/min Glucose 87 (74-106) mg/dL Calcium 9.5 (8.5-10.1) mg/dL Total Bilirubin 0.3 (0.2-1.0) mg/dL AST 43 H (15-37) IU/L ALT 110 H (14-63) IU/L Alkaline Phosphatase 178 H (46-116) U/L Total Protein 7.5 (6.4-8.2) g/dL Albumin 3.2 L (3.4-5.0) g/dL Globulin 4.3 H (2.6-4.0) g/dL Albumin/Globulin Ratio 0.7 L (0.9-1.6) Solomon Results Last 24 Hours: Microbiology 06/19/18 12:19 Aerobic Blood Culture - Preliminary Blood - Venous - Lab Draw NO GROWTH AFTER 2 DAYS Anaerobic Blood Culture - Preliminary NO GROWTH AFTER 2 DAYS 06/19/18 12:05 Aerobic Blood Culture - Preliminary Blood - Venous NO GROWTH AFTER 2 DAYS Anaerobic Blood Culture - Preliminary NO GROWTH AFTER 2 DAYS 06/19/18 15:47 Urine Culture - Final Urine, Clean Catch No Growth Med Orders - Current: Current Medications Docusate Sodium (Colace) 100 mg PO BID PRN PRN Reason: Constipation Last Admin: 06/14/18 08:39 Dose: 100 mg Enoxaparin Sodium (Lovenox) 40 mg SUBCUT Q24H [facility] Last Admin: 06/21/18 17:22 Dose: 40 mg Penicillin G Potassium 4 (millunits/ Dextrose/Water) 100 mls @ 200 mls/hr IV Q4H [facility] Last Admin: 06/22/18 05:55 Dose: 200 mls/hr Morphine Sulfate (Morphine) 2 mg IVPUSH Q4H PRN PRN Reason: Pain Last Admin: 06/21/18 19:47 Dose: 2 mg Nicotine (Habitrol) 14 mg TRDERM DAILY [facility] Last Admin: 06/21/18 08:37 Dose: 14 mg Ondansetron HCl (Zofran Odt) 4 mg PO Q4H PRN PRN Reason: nausea, able to take PO Ondansetron HCl (Zofran) 4 mg IVPUSH Q4H PRN PRN Reason: Nausea Oxycodone HCl (Oxycodone) 5 mg PO Q6H PRN PRN Reason: Pain Last Admin: 06/22/18 03:16 Dose: 5 mg Polyethylene Glycol (Miralax) 17 gm PO DAILY PRN PRN Reason: Constipation Sodium Chloride (Saline Flush) 10 ml FLUSH ASDIRECTED PRN PRN Reason: Keep Vein Open Last Admin: 06/13/18 17:30 Dose: 10 ml Sodium Chloride (Saline Flush) 2.5 ml FLUSH ASDIRECTED PRN PRN Reason: Keep Vein Open Last Admin: 06/13/18 17:30 Dose: 2.5 ml Valacyclovir HCl (Valtrex) 1,000 mg PO BID [facility] Last Admin: 06/21/18 21:36 Dose: 1,000 mg Discontinued Medications Acetaminophen (Tylenol) 650 mg PO Q4H PRN PRN Reason: Pain (Mild 1-3)/fever Last Admin: 06/19/18 02:02 Dose: 650 mg Penicillin G Potassium 4 (millunits/ Dextrose/Water) 100 mls @ 200 mls/hr IV Q4H [facility] Stop: 06/27/18 18:46 Last Admin: 06/13/18 21:06 Dose: 200 mls/hr Ceftriaxone Sodium 2 gm/ (Sodium Chloride) 50 mls @ 100 mls/hr IV ONETIME ONE Stop: 06/17/18 05:29 Last Admin: 06/17/18 04:10 Dose: 100 mls/hr Ibuprofen (Motrin) 800 mg PO Q6H PRN PRN Reason: Pain (mild 1-3) Last Admin: 06/16/18 12:16 Dose: 800 mg Ketorolac Tromethamine (Toradol) 60 mg IM ONETIME ONE Stop: 06/13/18 17:13 Last Admin: 06/13/18 17:33 Dose: Not Given Ketorolac Tromethamine (Toradol) 30 mg IVPUSH ONETIME ONE Stop: 06/13/18 17:17 Last Admin: 06/13/18 17:25 Dose: 30 mg Ketorolac Tromethamine (Toradol) 30 mg IV Q6H PRN PRN Reason: Pain (moderate 4-6) Morphine Sulfate (Morphine) 2 mg IVPUSH Q2H PRN PRN Reason: Pain (severe 7-10) Stop: 06/14/18 17:54 Last Admin: 06/13/18 18:33 Dose: 2 mg Morphine Sulfate (Morphine) 2 mg IVPUSH Q2H PRN PRN Reason: Pain (severe 7-10) Stop: 06/14/18 17:54 Last Admin: 06/13/18 21:52 Dose: 2 mg Morphine Sulfate (Morphine) 2 mg IVPUSH ONETIME ONE Stop: 06/16/18 05:57 Last Admin: 06/16/18 06:06 Dose: 2 mg Nicotine (Habitrol) 14 mg TRDERM DAILY [facility] Potassium Chloride (Potassium Chloride) 40 meq PO ONETIME ONE Stop: 06/14/18 07:53 Last Admin: 06/14/18 08:39 Dose: 40 meq - Exam General: Alert, Oriented Lungs: Clear to Auscultation, Normal Respiratory Effort Cardiovascular: Regular Rate, Regular Rhythm - Problem List Review Problem List Initiated/Reviewed/Updated: Yes - Plan Plan:: Assessment: #1. Neurosyphilis #2. HIV+ #3. Transaminitis Plan: Continue to treat with IV penicillin for a total treatment duration of 14 days. He is to f/u with infectious disease in [place] upon completion. Department of health nurse is to visit with the patient in the near future given his diagnosis. Hepatitis panel is negative. Will attempt to obtain a cmp tomorrow to assess liver function and electrolytes tomorrow AM; patient wasn't cooperative today. Have attempted to discuss with the patient the reason behind labs but without success. <Siva Wilder - Last Filed: 06/22/18 09:11> - General Info Subjective Update: I have see and examined the patient independently of medical concierge. I have discussed the case with the resident. I agree with the assessment and plan of care for this patient. Please see orders. The patient continues to remain overly angry and sometimes hostile the the staff. - Patient Data Vitals - Most Recent: Last Vital Signs Temp 36.1 C 06/22/18 03:00 Pulse 83 06/22/18 03:00 Resp 16 06/22/18 03:00 BP 100/48 L 06/22/18 03:00 Pulse Ox 98 06/22/18 03:00 I&O - Last 24 Hours: Intake & Output 06/21/18 06/22/18 06/22/18 22:59 06:59 14:59 Intake Total 1900 1850 Balance 1900 1850 Lab Results Last 24 Hours: Laboratory Results - last 24 hr 06/21/18 06/21/18 Range/Units 10:00 10:00 WBC 10.67 (4.0-11.0) K/uL RBC 4.99 (4.50-5.90) M/uL Hgb 15.3 (13.0-17.0) g/dL Hct 44.5 (38.0-50.0) % MCV 89.2 (80.0-98.0) fL MCH 30.7 (27.0-32.0) pg MCHC 34.4 (31.0-37.0) g/dL RDW Std Deviation 43.1 (28.0-62.0) fl RDW Coeff of Zari 14 (11.0-15.0) % Plt Count 275 (150-400) K/uL MPV 10.10 (7.40-12.00) fL Add Manual Diff YES Neutrophils % (Manual) 36 L (48.0-80.0) % Band Neutrophils % 2 % Lymphocytes % (Manual) 59 H (16.0-40.0) % Monocytes % (Manual) 2 (0.0-15.0) % Eosinophils % (Manual) 1 (0.0-7.0) % Nucleated RBC % 0.0 /100WBC Absolute Seg Neuts 3.8 (1.4-5.7) Band Neutrophils # 0.2 Lymphocytes # (Manual) 6.3 H (0.6-2.4) Monocytes # (Manual) 0.2 (0.0-0.8) Eosinophils # (Manual) 0.1 (0.0-0.7) Nucleated RBCs # 0 K/uL Sodium 138 (136-148) mmol/L Potassium 4.5 (3.5-5.1) mmol/L Chloride 101 (98-107) mmol/L Carbon Dioxide 29.9 (21.0-32.0) mmol/L BUN 15 (7.0-18.0) mg/dL Creatinine 0.9 (0.8-1.3) mg/dL Est Cr Clr Drug Dosing 150.95 mL/min Estimated GFR (MDRD) > 60.0 ml/min Glucose 87 (74-106) mg/dL Calcium 9.5 (8.5-10.1) mg/dL Total Bilirubin 0.3 (0.2-1.0) mg/dL AST 43 H (15-37) IU/L ALT 110 H (14-63) IU/L Alkaline Phosphatase 178 H (46-116) U/L Total Protein 7.5 (6.4-8.2) g/dL Albumin 3.2 L (3.4-5.0) g/dL Globulin 4.3 H (2.6-4.0) g/dL Albumin/Globulin Ratio 0.7 L (0.9-1.6) Solomon Results Last 24 Hours: Microbiology 06/19/18 12:19 Aerobic Blood Culture - Preliminary Blood - Venous - Lab Draw NO GROWTH AFTER 2 DAYS Anaerobic Blood Culture - Preliminary NO GROWTH AFTER 2 DAYS 06/19/18 12:05 Aerobic Blood Culture - Preliminary Blood - Venous NO GROWTH AFTER 2 DAYS Anaerobic Blood Culture - Preliminary NO GROWTH AFTER 2 DAYS 06/19/18 15:47 Urine Culture - Final Urine, Clean Catch No Growth Med Orders - Current: Current Medications Docusate Sodium (Colace) 100 mg PO BID PRN PRN Reason: Constipation Last Admin: 06/14/18 08:39 Dose: 100 mg Enoxaparin Sodium (Lovenox) 40 mg SUBCUT Q24H [facility] Last Admin: 06/21/18 17:22 Dose: 40 mg Penicillin G Potassium 4 (millunits/ Dextrose/Water) 100 mls @ 200 mls/hr IV Q4H [facility] Last Admin: 06/22/18 05:55 Dose: 200 mls/hr Morphine Sulfate (Morphine) 2 mg IVPUSH Q4H PRN PRN Reason: Pain Last Admin: 06/21/18 19:47 Dose: 2 mg Nicotine (Habitrol) 14 mg TRDERM DAILY [facility] Last Admin: 06/21/18 08:37 Dose: 14 mg Ondansetron HCl (Zofran Odt) 4 mg PO Q4H PRN PRN Reason: nausea, able to take PO Ondansetron HCl (Zofran) 4 mg IVPUSH Q4H PRN PRN Reason: Nausea Oxycodone HCl (Oxycodone) 5 mg PO Q6H PRN PRN Reason: Pain Last Admin: 06/22/18 03:16 Dose: 5 mg Polyethylene Glycol (Miralax) 17 gm PO DAILY PRN PRN Reason: Constipation Sodium Chloride (Saline Flush) 10 ml FLUSH ASDIRECTED PRN PRN Reason: Keep Vein Open Last Admin: 06/13/18 17:30 Dose: 10 ml Sodium Chloride (Saline Flush) 2.5 ml FLUSH ASDIRECTED PRN PRN Reason: Keep Vein Open Last Admin: 06/13/18 17:30 Dose: 2.5 ml Valacyclovir HCl (Valtrex) 1,000 mg PO BID [facility] Last Admin: 06/21/18 21:36 Dose: 1,000 mg Discontinued Medications Acetaminophen (Tylenol) 650 mg PO Q4H PRN PRN Reason: Pain (Mild 1-3)/fever Last Admin: 06/19/18 02:02 Dose: 650 mg Penicillin G Potassium 4 (millunits/ Dextrose/Water) 100 mls @ 200 mls/hr IV Q4H [facility] Stop: 06/27/18 18:46 Last Admin: 06/13/18 21:06 Dose: 200 mls/hr Ceftriaxone Sodium 2 gm/ (Sodium Chloride) 50 mls @ 100 mls/hr IV ONETIME ONE Stop: 06/17/18 05:29 Last Admin: 06/17/18 04:10 Dose: 100 mls/hr Ibuprofen (Motrin) 800 mg PO Q6H PRN PRN Reason: Pain (mild 1-3) Last Admin: 06/16/18 12:16 Dose: 800 mg Ketorolac Tromethamine (Toradol) 60 mg IM ONETIME ONE Stop: 06/13/18 17:13 Last Admin: 06/13/18 17:33 Dose: Not Given Ketorolac Tromethamine (Toradol) 30 mg IVPUSH ONETIME ONE Stop: 06/13/18 17:17 Last Admin: 06/13/18 17:25 Dose: 30 mg Ketorolac Tromethamine (Toradol) 30 mg IV Q6H PRN PRN Reason: Pain (moderate 4-6) Morphine Sulfate (Morphine) 2 mg IVPUSH Q2H PRN PRN Reason: Pain (severe 7-10) Stop: 06/14/18 17:54 Last Admin: 06/13/18 18:33 Dose: 2 mg Morphine Sulfate (Morphine) 2 mg IVPUSH Q2H PRN PRN Reason: Pain (severe 7-10) Stop: 06/14/18 17:54 Last Admin: 06/13/18 21:52 Dose: 2 mg Morphine Sulfate (Morphine) 2 mg IVPUSH ONETIME ONE Stop: 06/16/18 05:57 Last Admin: 06/16/18 06:06 Dose: 2 mg Nicotine (Habitrol) 14 mg TRDERM DAILY [facility] Potassium Chloride (Potassium Chloride) 40 meq PO ONETIME ONE Stop: 06/14/18 07:53 Last Admin: 06/14/18 08:39 Dose: 40 meq
[2018-06-22] MEDS: valACYclovir 500 MG Tab PO SCH ×2 (10:00→20:26)
[2018-06-22] MEDS: Nicotine 14 MG/24 Hr Patch TRDERM SCH (10:00)
[2018-06-22] MEDS: Morphine 2 MG/ML Syringe IVPUSH PRN ×2 (13:20→17:51)
[2018-06-22] MEDS: Enoxaparin 40 MG/0.4 ML Syringe SUBCUT SCH (17:52)
[2018-06-23] MEDS: oxyCODONE 5 MG Tab PO PRN ×4 (01:06→22:00)
[2018-06-23] MEDS: DEXTROSE IV SCH ×12 (01:07→22:00)
[2018-06-23] MEDS: PENICILLIN POTASSIUM IV SCH ×12 (01:07→22:00)
[2018-06-23] MEDS: WATER IV SCH ×12 (01:07→22:00)
[2018-06-23] MEDS: Morphine 2 MG/ML Syringe IVPUSH PRN ×3 (05:22→17:56)
--- NOTE | 2018-06-23 07:29 | PCM.PN ---
- General Info Date of Service: 06/23/18 Admission Dx/Problem (Free Text): Admission Diagnosis/Problem Admission Diagnosis/Problem Syphilis Subjective Update: Awaiting completion of therapy for neurosyphillis. Patient uncooperative. No complaints. Refuses physical exam. Functional Status: Reports: Pain Controlled - Review of Systems General: Reports: No Symptoms HEENT: Reports: No Symptoms Pulmonary: Reports: No Symptoms Cardiovascular: Reports: No Symptoms Gastrointestinal: Reports: No Symptoms Genitourinary: Reports: No Symptoms Musculoskeletal: Reports: No Symptoms Skin: Reports: No Symptoms Neurological: Reports: No Symptoms Psychiatric: Reports: No Symptoms - Patient Data Vitals - Most Recent: Last Vital Signs Temp 36.1 C 06/23/18 03:44 Pulse 61 06/23/18 03:44 Resp 16 06/23/18 03:44 BP 101/55 L 06/23/18 03:44 Pulse Ox 96 06/23/18 03:44 Weight - Most Recent: 84.776 kg I&O - Last 24 Hours: Intake & Output 06/22/18 06/23/18 06/23/18 22:59 06:59 14:59 Intake Total 960 1600 Balance 960 1600 Solomon Results Last 24 Hours: Microbiology 06/19/18 12:05 Aerobic Blood Culture - Preliminary Blood - Venous NO GROWTH AFTER 3 DAYS Anaerobic Blood Culture - Preliminary NO GROWTH AFTER 3 DAYS 06/19/18 12:19 Aerobic Blood Culture - Preliminary Blood - Venous - Lab Draw NO GROWTH AFTER 3 DAYS Anaerobic Blood Culture - Preliminary NO GROWTH AFTER 3 DAYS Med Orders - Current: Current Medications Docusate Sodium (Colace) 100 mg PO BID PRN PRN Reason: Constipation Last Admin: 06/14/18 08:39 Dose: 100 mg Enoxaparin Sodium (Lovenox) 40 mg SUBCUT Q24H [facility] Last Admin: 06/22/18 17:52 Dose: 40 mg Penicillin G Potassium 4 (millunits/ Dextrose/Water) 100 mls @ 200 mls/hr IV Q4H [facility] Last Admin: 06/23/18 04:31 Dose: 200 mls/hr Morphine Sulfate (Morphine) 2 mg IVPUSH Q4H PRN PRN Reason: Pain Last Admin: 06/23/18 05:22 Dose: 2 mg Nicotine (Habitrol) 14 mg TRDERM DAILY [facility] Last Admin: 06/22/18 10:00 Dose: 14 mg Ondansetron HCl (Zofran Odt) 4 mg PO Q4H PRN PRN Reason: nausea, able to take PO Ondansetron HCl (Zofran) 4 mg IVPUSH Q4H PRN PRN Reason: Nausea Oxycodone HCl (Oxycodone) 5 mg PO Q6H PRN PRN Reason: Pain Last Admin: 06/23/18 01:06 Dose: 5 mg Polyethylene Glycol (Miralax) 17 gm PO DAILY PRN PRN Reason: Constipation Sodium Chloride (Saline Flush) 10 ml FLUSH ASDIRECTED PRN PRN Reason: Keep Vein Open Last Admin: 06/13/18 17:30 Dose: 10 ml Sodium Chloride (Saline Flush) 2.5 ml FLUSH ASDIRECTED PRN PRN Reason: Keep Vein Open Last Admin: 06/13/18 17:30 Dose: 2.5 ml Valacyclovir HCl (Valtrex) 1,000 mg PO BID [facility] Last Admin: 06/22/18 20:26 Dose: 1,000 mg Discontinued Medications Acetaminophen (Tylenol) 650 mg PO Q4H PRN PRN Reason: Pain (Mild 1-3)/fever Last Admin: 06/19/18 02:02 Dose: 650 mg Penicillin G Potassium 4 (millunits/ Dextrose/Water) 100 mls @ 200 mls/hr IV Q4H [facility] Stop: 06/27/18 18:46 Last Admin: 06/13/18 21:06 Dose: 200 mls/hr Ceftriaxone Sodium 2 gm/ (Sodium Chloride) 50 mls @ 100 mls/hr IV ONETIME ONE Stop: 06/17/18 05:29 Last Admin: 06/17/18 04:10 Dose: 100 mls/hr Ibuprofen (Motrin) 800 mg PO Q6H PRN PRN Reason: Pain (mild 1-3) Last Admin: 06/16/18 12:16 Dose: 800 mg Ketorolac Tromethamine (Toradol) 60 mg IM ONETIME ONE Stop: 06/13/18 17:13 Last Admin: 06/13/18 17:33 Dose: Not Given Ketorolac Tromethamine (Toradol) 30 mg IVPUSH ONETIME ONE Stop: 06/13/18 17:17 Last Admin: 06/13/18 17:25 Dose: 30 mg Ketorolac Tromethamine (Toradol) 30 mg IV Q6H PRN PRN Reason: Pain (moderate 4-6) Morphine Sulfate (Morphine) 2 mg IVPUSH Q2H PRN PRN Reason: Pain (severe 7-10) Stop: 06/14/18 17:54 Last Admin: 06/13/18 18:33 Dose: 2 mg Morphine Sulfate (Morphine) 2 mg IVPUSH Q2H PRN PRN Reason: Pain (severe 7-10) Stop: 06/14/18 17:54 Last Admin: 06/13/18 21:52 Dose: 2 mg Morphine Sulfate (Morphine) 2 mg IVPUSH ONETIME ONE Stop: 06/16/18 05:57 Last Admin: 06/16/18 06:06 Dose: 2 mg Nicotine (Habitrol) 14 mg TRDERM DAILY [facility] Potassium Chloride (Potassium Chloride) 40 meq PO ONETIME ONE Stop: 06/14/18 07:53 Last Admin: 06/14/18 08:39 Dose: 40 meq Comments:: Head undercover, 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 - Exam Quality Assessment: No: Supplemental Oxygen - Problem List & Annotations (1) Syphilis in male SNOMED Code(s): 76098956 Code(s): A53.9 - SYPHILIS, UNSPECIFIED Status: Acute Current Visit: Yes (2) Balanitis SNOMED Code(s): 87462179 Code(s): N48.1 - BALANITIS Status: Acute Current Visit: No (3) HSV infection Status: Acute Current Visit: No (4) Lesion of penis SNOMED Code(s): 733022006 Code(s): N48.9 - DISORDER OF PENIS, UNSPECIFIED Status: Acute Current Visit: No - Problem List Review Problem List Initiated/Reviewed/Updated: Yes - Plan Plan:: Assessment: #1. Neurosyphilis #2. HIV+ #3. Transaminitis Plan: Continue to treat with IV penicillin for a total treatment duration of 14 days. He is to f/u with infectious disease in [place] upon completion. Department of health nurse is to visit with the patient in the near future given his diagnosis. Hepatitis panel is negative. Will attempt to obtain a cmp tomorrow to assess liver function and electrolytes tomorrow AM; patient wasn't cooperative today. Have attempted to discuss with the patient the reason behind labs but without success. Continue with current therapy. Continue all medications for now. Patient encouraged to ambulate. He however, remains in room uncooperative and has been occasionally hostile to staff.
[2018-06-23] MEDS: Nicotine 14 MG/24 Hr Patch TRDERM SCH ×2 (09:52→10:01)
[2018-06-23] MEDS: valACYclovir 500 MG Tab PO SCH ×2 (09:53→22:00)
[2018-06-23] MEDS: Enoxaparin 40 MG/0.4 ML Syringe SUBCUT SCH (18:03)
[2018-06-24] MEDS: Morphine 2 MG/ML Syringe IVPUSH PRN ×5 (00:02→21:18)
[2018-06-24] MEDS: PENICILLIN POTASSIUM IV SCH ×12 (01:28→21:18)
[2018-06-24] MEDS: DEXTROSE IV SCH ×12 (01:28→21:18)
[2018-06-24] MEDS: WATER IV SCH ×12 (01:28→21:18)
[2018-06-24] MEDS: oxyCODONE 5 MG Tab PO PRN ×4 (04:44→22:45)
[2018-06-24] MEDS: Nicotine 14 MG/24 Hr Patch TRDERM SCH (09:08)
[2018-06-24] MEDS: valACYclovir 500 MG Tab PO SCH ×2 (09:16→21:19)
--- NOTE | 2018-06-24 10:38 | PCM.PN ---
- General Info Date of Service: 06/24/18 Subjective Update: Awaiting completion of therapy for neurosyphillis. Patient uncooperative. No complaints. He has no new complaints. He tells me that he plans on going to [place] upon discharge. - Review of Systems General: Reports: Other (negative except for hpi) - Patient Data Vitals - Most Recent: Last Vital Signs Temp 36.6 C 06/24/18 09:00 Pulse 70 06/24/18 09:00 Resp 16 06/24/18 09:00 BP 111/55 L 06/24/18 09:00 Pulse Ox 97 06/24/18 09:00 Weight - Most Recent: 84.776 kg I&O - Last 24 Hours: Intake & Output 06/23/18 06/24/18 06/24/18 22:59 06:59 14:59 Intake Total 860 Balance 860 Solomon Results Last 24 Hours: Microbiology 06/19/18 12:05 Aerobic Blood Culture - Preliminary Blood - Venous NO GROWTH AFTER 4 DAYS Anaerobic Blood Culture - Preliminary NO GROWTH AFTER 4 DAYS 06/19/18 12:19 Aerobic Blood Culture - Preliminary Blood - Venous - Lab Draw NO GROWTH AFTER 4 DAYS Anaerobic Blood Culture - Preliminary NO GROWTH AFTER 4 DAYS Med Orders - Current: Current Medications Docusate Sodium (Colace) 100 mg PO BID PRN PRN Reason: Constipation Last Admin: 06/14/18 08:39 Dose: 100 mg Enoxaparin Sodium (Lovenox) 40 mg SUBCUT Q24H [facility] Last Admin: 06/23/18 18:03 Dose: 40 mg Penicillin G Potassium 4 (millunits/ Dextrose/Water) 100 mls @ 200 mls/hr IV Q4H [facility] Last Admin: 06/24/18 09:08 Dose: 200 mls/hr Morphine Sulfate (Morphine) 2 mg IVPUSH Q4H PRN PRN Reason: Pain Last Admin: 06/24/18 09:13 Dose: 2 mg Nicotine (Habitrol) 14 mg TRDERM DAILY [facility] Last Admin: 06/24/18 09:08 Dose: Not Given Ondansetron HCl (Zofran Odt) 4 mg PO Q4H PRN PRN Reason: nausea, able to take PO Ondansetron HCl (Zofran) 4 mg IVPUSH Q4H PRN PRN Reason: Nausea Oxycodone HCl (Oxycodone) 5 mg PO Q6H PRN PRN Reason: Pain Last Admin: 06/24/18 10:22 Dose: 5 mg Polyethylene Glycol (Miralax) 17 gm PO DAILY PRN PRN Reason: Constipation Sodium Chloride (Saline Flush) 10 ml FLUSH ASDIRECTED PRN PRN Reason: Keep Vein Open Last Admin: 06/13/18 17:30 Dose: 10 ml Sodium Chloride (Saline Flush) 2.5 ml FLUSH ASDIRECTED PRN PRN Reason: Keep Vein Open Last Admin: 06/13/18 17:30 Dose: 2.5 ml Valacyclovir HCl (Valtrex) 1,000 mg PO BID [facility] Last Admin: 06/24/18 09:16 Dose: 1,000 mg Discontinued Medications Acetaminophen (Tylenol) 650 mg PO Q4H PRN PRN Reason: Pain (Mild 1-3)/fever Last Admin: 06/19/18 02:02 Dose: 650 mg Penicillin G Potassium 4 (millunits/ Dextrose/Water) 100 mls @ 200 mls/hr IV Q4H [facility] Stop: 06/27/18 18:46 Last Admin: 06/13/18 21:06 Dose: 200 mls/hr Ceftriaxone Sodium 2 gm/ (Sodium Chloride) 50 mls @ 100 mls/hr IV ONETIME ONE Stop: 06/17/18 05:29 Last Admin: 06/17/18 04:10 Dose: 100 mls/hr Ibuprofen (Motrin) 800 mg PO Q6H PRN PRN Reason: Pain (mild 1-3) Last Admin: 06/16/18 12:16 Dose: 800 mg Ketorolac Tromethamine (Toradol) 60 mg IM ONETIME ONE Stop: 06/13/18 17:13 Last Admin: 06/13/18 17:33 Dose: Not Given Ketorolac Tromethamine (Toradol) 30 mg IVPUSH ONETIME ONE Stop: 06/13/18 17:17 Last Admin: 06/13/18 17:25 Dose: 30 mg Ketorolac Tromethamine (Toradol) 30 mg IV Q6H PRN PRN Reason: Pain (moderate 4-6) Morphine Sulfate (Morphine) 2 mg IVPUSH Q2H PRN PRN Reason: Pain (severe 7-10) Stop: 06/14/18 17:54 Last Admin: 06/13/18 18:33 Dose: 2 mg Morphine Sulfate (Morphine) 2 mg IVPUSH Q2H PRN PRN Reason: Pain (severe 7-10) Stop: 06/14/18 17:54 Last Admin: 06/13/18 21:52 Dose: 2 mg Morphine Sulfate (Morphine) 2 mg IVPUSH ONETIME ONE Stop: 06/16/18 05:57 Last Admin: 06/16/18 06:06 Dose: 2 mg Nicotine (Habitrol) 14 mg TRDERM DAILY [facility] Potassium Chloride (Potassium Chloride) 40 meq PO ONETIME ONE Stop: 06/14/18 07:53 Last Admin: 06/14/18 08:39 Dose: 40 meq - Exam General: Alert, Oriented Lungs: Clear to Auscultation, Normal Respiratory Effort Cardiovascular: Regular Rate, Regular Rhythm Peripheral Pulses: 2+: Dorsalis Pedis (L), Dorsalis Pedis (R) - Problem List Review Problem List Initiated/Reviewed/Updated: Yes - Plan Plan:: Assessment: #1. Neurosyphilis #2. HIV+ #3. Transaminitis Plan: Continue to treat with IV penicillin for a total treatment duration of 14 days. He is to f/u with infectious disease in [place] upon completion. Department of health nurse is to visit with the patient in the near future given his diagnosis. Hepatitis panel is negative. Continue with current therapy. Continue all medications for now. Patient encouraged to ambulate. He however, remains in room uncooperative and has been occasionally hostile to staff.
[2018-06-24] MEDS: Enoxaparin 40 MG/0.4 ML Syringe SUBCUT SCH (18:03)
[2018-06-25] MEDS: DEXTROSE IV SCH ×14 (01:01→20:55)
[2018-06-25] MEDS: WATER IV SCH ×14 (01:01→20:55)
[2018-06-25] MEDS: PENICILLIN POTASSIUM IV SCH ×14 (01:01→20:55)
[2018-06-25] MEDS: valACYclovir 500 MG Tab PO SCH ×2 (09:07→20:55)
[2018-06-25] MEDS: Morphine 2 MG/ML Syringe IVPUSH PRN ×3 (09:07→21:36)
[2018-06-25] MEDS: oxyCODONE 5 MG Tab PO PRN ×3 (09:07→22:09)
[2018-06-25] MEDS: Nicotine 14 MG/24 Hr Patch TRDERM SCH (09:43)
--- NOTE | 2018-06-25 10:25 | PCM.SN ---
- Free Text/Narrative Note: Anesthesia Note: Called for IV placement d/t pt refusing anyone else to stick him. Initial attempt to L hand unsuccessful - 22 Ga to R FA successful - secured and turned over to nursing staff.
--- NOTE | 2018-06-25 11:07 | PCM.PN ---
- General Info Date of Service: 06/25/18 Subjective Update: Awaiting completion of therapy for neurosyphillis. Patient uncooperative with nursing staff initially because of difficult IV access. Discussed importance of treatment w/ patient, who now agrees. [employer]CTION ADVISORY SERVICES MANAGER was able to obtain access. Father was visiting today, who urged patient to cooperate and that patient has genital lesions that hes complaining of. However, patient still declines exam. He tells me that he plans on going to [place] upon discharge. - Review of Systems General: Reports: Other (see hpi ) - Patient Data Vitals - Most Recent: Last Vital Signs Temp 36.3 C 06/25/18 09:27 Pulse 81 06/25/18 09:27 Resp 16 06/25/18 09:27 BP 107/58 L 06/25/18 09:27 Pulse Ox 93 L 06/25/18 09:27 Weight - Most Recent: 84.776 kg I&O - Last 24 Hours: Intake & Output 06/24/18 06/25/18 06/25/18 22:59 06:59 14:59 Intake Total 1300 Balance 1300 Solomon Results Last 24 Hours: Microbiology 06/19/18 12:05 Aerobic Blood Culture - Final Blood - Venous NO GROWTH AFTER 5 DAYS Anaerobic Blood Culture - Final NO GROWTH AFTER 5 DAYS 06/19/18 12:19 Aerobic Blood Culture - Final Blood - Venous - Lab Draw NO GROWTH AFTER 5 DAYS Anaerobic Blood Culture - Final NO GROWTH AFTER 5 DAYS Med Orders - Current: Current Medications Docusate Sodium (Colace) 100 mg PO BID PRN PRN Reason: Constipation Last Admin: 06/14/18 08:39 Dose: 100 mg Enoxaparin Sodium (Lovenox) 40 mg SUBCUT Q24H [facility] Last Admin: 06/24/18 18:03 Dose: 40 mg Penicillin G Potassium 4 (millunits/ Dextrose/Water) 100 mls @ 200 mls/hr IV Q4H [facility] Last Admin: 06/25/18 10:27 Dose: 200 mls/hr Morphine Sulfate (Morphine) 2 mg IVPUSH Q4H PRN PRN Reason: Pain Last Admin: 06/25/18 10:30 Dose: 2 mg Nicotine (Habitrol) 14 mg TRDERM DAILY [facility] Last Admin: 06/25/18 09:43 Dose: Not Given Ondansetron HCl (Zofran Odt) 4 mg PO Q4H PRN PRN Reason: nausea, able to take PO Ondansetron HCl (Zofran) 4 mg IVPUSH Q4H PRN PRN Reason: Nausea Oxycodone HCl (Oxycodone) 5 mg PO Q6H PRN PRN Reason: Pain Last Admin: 06/25/18 09:07 Dose: 5 mg Polyethylene Glycol (Miralax) 17 gm PO DAILY PRN PRN Reason: Constipation Sodium Chloride (Saline Flush) 10 ml FLUSH ASDIRECTED PRN PRN Reason: Keep Vein Open Last Admin: 06/13/18 17:30 Dose: 10 ml Sodium Chloride (Saline Flush) 2.5 ml FLUSH ASDIRECTED PRN PRN Reason: Keep Vein Open Last Admin: 06/13/18 17:30 Dose: 2.5 ml Valacyclovir HCl (Valtrex) 1,000 mg PO BID [facility] Last Admin: 06/25/18 09:07 Dose: 1,000 mg Discontinued Medications Acetaminophen (Tylenol) 650 mg PO Q4H PRN PRN Reason: Pain (Mild 1-3)/fever Last Admin: 06/19/18 02:02 Dose: 650 mg Penicillin G Potassium 4 (millunits/ Dextrose/Water) 100 mls @ 200 mls/hr IV Q4H [facility] Stop: 06/27/18 18:46 Last Admin: 06/13/18 21:06 Dose: 200 mls/hr Ceftriaxone Sodium 2 gm/ (Sodium Chloride) 50 mls @ 100 mls/hr IV ONETIME ONE Stop: 06/17/18 05:29 Last Admin: 06/17/18 04:10 Dose: 100 mls/hr Ibuprofen (Motrin) 800 mg PO Q6H PRN PRN Reason: Pain (mild 1-3) Last Admin: 06/16/18 12:16 Dose: 800 mg Ketorolac Tromethamine (Toradol) 60 mg IM ONETIME ONE Stop: 06/13/18 17:13 Last Admin: 06/13/18 17:33 Dose: Not Given Ketorolac Tromethamine (Toradol) 30 mg IVPUSH ONETIME ONE Stop: 06/13/18 17:17 Last Admin: 06/13/18 17:25 Dose: 30 mg Ketorolac Tromethamine (Toradol) 30 mg IV Q6H PRN PRN Reason: Pain (moderate 4-6) Morphine Sulfate (Morphine) 2 mg IVPUSH Q2H PRN PRN Reason: Pain (severe 7-10) Stop: 06/14/18 17:54 Last Admin: 06/13/18 18:33 Dose: 2 mg Morphine Sulfate (Morphine) 2 mg IVPUSH Q2H PRN PRN Reason: Pain (severe 7-10) Stop: 06/14/18 17:54 Last Admin: 06/13/18 21:52 Dose: 2 mg Morphine Sulfate (Morphine) 2 mg IVPUSH ONETIME ONE Stop: 06/16/18 05:57 Last Admin: 06/16/18 06:06 Dose: 2 mg Nicotine (Habitrol) 14 mg TRDERM DAILY [facility] Potassium Chloride (Potassium Chloride) 40 meq PO ONETIME ONE Stop: 06/14/18 07:53 Last Admin: 06/14/18 08:39 Dose: 40 meq - Exam General: Alert, Oriented HEENT: Pupils Equal, Pupils Reactive, EOMI, Mucous Membr. Moist/Falling [place] Neck: Supple Lungs: Clear to Auscultation, Normal Respiratory Effort Cardiovascular: Regular Rate, Regular Rhythm GI/Abdominal Exam: Normal Bowel Sounds, Soft, Non-Tender, No Organomegaly, No Distention, No Abnormal Bruit, No Mass, Pelvis Stable - Problem List Review Problem List Initiated/Reviewed/Updated: Yes - My Orders Last 24 Hours: My Active Orders 06/25/18 05:11 BASIC METABOLIC PANEL,BMP [CHEM] AM CBC WITH AUTO DIFF [HEME] AM - Plan Plan:: Assessment: #1. Neurosyphilis #2. HIV+ Plan: #1. Continue IV antibiotics, anticipate discharge with a follow up with infectious disease in [place]. He agrees to the plan.
[2018-06-25] MEDS: Enoxaparin 40 MG/0.4 ML Syringe SUBCUT SCH (17:49)
[2018-06-26] MEDS: WATER IV SCH ×14 (00:03→21:59)
[2018-06-26] MEDS: PENICILLIN POTASSIUM IV SCH ×14 (00:03→21:59)
[2018-06-26] MEDS: DEXTROSE IV SCH ×14 (00:03→21:59)
[2018-06-26] MEDS: oxyCODONE 5 MG Tab PO PRN ×4 (04:45→21:59)
--- NOTE | 2018-06-26 08:39 | PCM.PN ---
- General Info Date of Service: 06/26/18 Subjective Update: Awaiting completion of therapy for neurosyphillis. He has no new complaints today. - Review of Systems General: Reports: Other (negative except for hpi ) - Patient Data Vitals - Most Recent: Last Vital Signs Temp 36.9 C 06/26/18 00:28 Pulse 64 06/26/18 04:37 Resp 16 06/26/18 04:37 BP 104/57 L 06/26/18 04:37 Pulse Ox 98 06/26/18 04:37 Weight - Most Recent: 84.776 kg I&O - Last 24 Hours: Intake & Output 06/25/18 06/26/18 06/26/18 22:59 06:59 14:59 Intake Total 1900 Balance 1900 Med Orders - Current: Current Medications Docusate Sodium (Colace) 100 mg PO BID PRN PRN Reason: Constipation Last Admin: 06/14/18 08:39 Dose: 100 mg Enoxaparin Sodium (Lovenox) 40 mg SUBCUT Q24H [facility] Last Admin: 06/25/18 17:49 Dose: 40 mg Penicillin G Potassium 4 (millunits/ Dextrose/Water) 100 mls @ 200 mls/hr IV Q4H [facility] Last Admin: 06/26/18 04:37 Dose: 200 mls/hr Morphine Sulfate (Morphine) 2 mg IVPUSH Q4H PRN PRN Reason: Pain Last Admin: 06/25/18 21:36 Dose: 2 mg Nicotine (Habitrol) 14 mg TRDERM DAILY [facility] Last Admin: 06/25/18 09:43 Dose: Not Given Ondansetron HCl (Zofran Odt) 4 mg PO Q4H PRN PRN Reason: nausea, able to take PO Ondansetron HCl (Zofran) 4 mg IVPUSH Q4H PRN PRN Reason: Nausea Oxycodone HCl (Oxycodone) 5 mg PO Q6H PRN PRN Reason: Pain Last Admin: 06/26/18 04:45 Dose: 5 mg Polyethylene Glycol (Miralax) 17 gm PO DAILY PRN PRN Reason: Constipation Sodium Chloride (Saline Flush) 10 ml FLUSH ASDIRECTED PRN PRN Reason: Keep Vein Open Last Admin: 06/13/18 17:30 Dose: 10 ml Sodium Chloride (Saline Flush) 2.5 ml FLUSH ASDIRECTED PRN PRN Reason: Keep Vein Open Last Admin: 06/13/18 17:30 Dose: 2.5 ml Valacyclovir HCl (Valtrex) 1,000 mg PO BID [facility] Last Admin: 06/25/18 20:55 Dose: 1,000 mg Discontinued Medications Acetaminophen (Tylenol) 650 mg PO Q4H PRN PRN Reason: Pain (Mild 1-3)/fever Last Admin: 06/19/18 02:02 Dose: 650 mg Penicillin G Potassium 4 (millunits/ Dextrose/Water) 100 mls @ 200 mls/hr IV Q4H [facility] Stop: 06/27/18 18:46 Last Admin: 06/13/18 21:06 Dose: 200 mls/hr Ceftriaxone Sodium 2 gm/ (Sodium Chloride) 50 mls @ 100 mls/hr IV ONETIME ONE Stop: 06/17/18 05:29 Last Admin: 06/17/18 04:10 Dose: 100 mls/hr Ibuprofen (Motrin) 800 mg PO Q6H PRN PRN Reason: Pain (mild 1-3) Last Admin: 06/16/18 12:16 Dose: 800 mg Ketorolac Tromethamine (Toradol) 60 mg IM ONETIME ONE Stop: 06/13/18 17:13 Last Admin: 06/13/18 17:33 Dose: Not Given Ketorolac Tromethamine (Toradol) 30 mg IVPUSH ONETIME ONE Stop: 06/13/18 17:17 Last Admin: 06/13/18 17:25 Dose: 30 mg Ketorolac Tromethamine (Toradol) 30 mg IV Q6H PRN PRN Reason: Pain (moderate 4-6) Morphine Sulfate (Morphine) 2 mg IVPUSH Q2H PRN PRN Reason: Pain (severe 7-10) Stop: 06/14/18 17:54 Last Admin: 06/13/18 18:33 Dose: 2 mg Morphine Sulfate (Morphine) 2 mg IVPUSH Q2H PRN PRN Reason: Pain (severe 7-10) Stop: 06/14/18 17:54 Last Admin: 06/13/18 21:52 Dose: 2 mg Morphine Sulfate (Morphine) 2 mg IVPUSH ONETIME ONE Stop: 06/16/18 05:57 Last Admin: 06/16/18 06:06 Dose: 2 mg Nicotine (Habitrol) 14 mg TRDERM DAILY [facility] Potassium Chloride (Potassium Chloride) 40 meq PO ONETIME ONE Stop: 06/14/18 07:53 Last Admin: 06/14/18 08:39 Dose: 40 meq - Exam General: Alert, Oriented Lungs: Clear to Auscultation, Normal Respiratory Effort Cardiovascular: Regular Rate, Regular Rhythm GI/Abdominal Exam: Normal Bowel Sounds, Soft, Non-Tender, No Organomegaly, No Distention, No Abnormal Bruit, No Mass Peripheral Pulses: 2+: Dorsalis Pedis (L), Dorsalis Pedis (R) - Problem List Review Problem List Initiated/Reviewed/Updated: Yes - Plan Plan:: Assessment: #1. Neurosyphilis #2. HIV+ Plan: #1. Continue IV antibiotics, anticipate discharge with a follow up with infectious disease in [place]. An appointment for him is to be set up.
[2018-06-26] MEDS: valACYclovir 500 MG Tab PO SCH ×2 (09:07→22:00)
[2018-06-26] MEDS: Nicotine 14 MG/24 Hr Patch TRDERM SCH (09:07)
[2018-06-26] MEDS: Morphine 2 MG/ML Syringe IVPUSH PRN ×3 (09:50→19:33)
[2018-06-26] MEDS: Enoxaparin 40 MG/0.4 ML Syringe SUBCUT SCH (17:58)
[2018-06-27] MEDS: WATER IV SCH ×6 (01:01→10:20)
[2018-06-27] MEDS: DEXTROSE IV SCH ×6 (01:01→10:20)
[2018-06-27] MEDS: PENICILLIN POTASSIUM IV SCH ×6 (01:01→10:20)
[2018-06-27] MEDS: Morphine 2 MG/ML Syringe IVPUSH PRN ×2 (01:37→10:20)
[2018-06-27] MEDS: oxyCODONE 5 MG Tab PO PRN (04:43)
[2018-06-27] MEDS: Nicotine 14 MG/24 Hr Patch TRDERM SCH ×2 (10:19→10:25)
[2018-06-27] MEDS: valACYclovir 500 MG Tab PO SCH (10:20)
--- NOTE | 2018-06-27 12:17 | PCM.DCSUM1 ---
Discharge Summary - Hospital Course Free Text/Narrative:: Admission date: 06/13/2018 Discharge date: 06/27/2018 Admission diagnosis: #1. HIV #2. Neurosyphilis Discharge diagnosis: #1. HIV #2. Syphilis w/ CSF suspicious for neurosyphilis - negative VDRL #3. Transaminitis #4. Genital lesions #5. History of opioid abuse Hospital course: 23M with the hx above admitted from urology clinic for concerns of possible syphilis. Patient was treated w/ IV penicillin for 14 days , found to be HIV+. Patient is to f/u with infectious disease for further management of his HIV. He understands and agrees to the plan. In regards to his genital lesions, patient declined full physical exam so I was unable to assess what this was - but he was complaining of pain. It was unclear what the cause of pain is given syphilis is typically painless. - Discharge Data Discharge Date: 06/27/18 Discharge Disposition: Home, Self-Care 01 Condition: Stable - Patient Instructions Diet: Usual Diet as Tolerated Activity: As Tolerated Driving: May Drive Today Showering/Bathing: May Shower Notify Provider of: Fever, Increased Pain, Swelling and Redness, Nausea and/or Vomiting - Discharge Plan *PRESCRIPTION DRUG MONITORING PROGRAM REVIEWED*: No *COPY OF PRESCRIPTION DRUG MONITORING REPORT IN PATIENT EVAN: No Home Medications: Home Meds . [No Known Home Meds] 04/16/18 [History] Patient Handouts: Syphilis, HIV Infection and AIDS, Preventing Sexually Transmitted Infections, Adult Referrals: [facility] [Outside] Tim Ann MD [Ordering Only Provider] - 07/03/18 1:00 pm - Discharge Summary/Plan Comment DC Time >30 min.: No - Patient Data Vitals - Most Recent: Last Vital Signs Temp 36.6 C 06/27/18 08:00 Pulse 82 06/27/18 08:00 Resp 17 06/27/18 08:00 BP 110/62 06/27/18 08:00 Pulse Ox 97 06/27/18 08:00 Weight - Most Recent: 84.776 kg I&O - Last 24 hours: Intake & Output 06/26/18 06/27/18 06/27/18 22:59 06:59 14:59 Intake Total 1600 2200 Balance 1600 2200 Med Orders - Current: Current Medications Docusate Sodium (Colace) 100 mg PO BID PRN PRN Reason: Constipation Last Admin: 06/14/18 08:39 Dose: 100 mg Enoxaparin Sodium (Lovenox) 40 mg SUBCUT Q24H [facility] Last Admin: 06/26/18 17:58 Dose: 40 mg Penicillin G Potassium 4 (millunits/ Dextrose/Water) 100 mls @ 200 mls/hr IV Q4H [facility] Last Admin: 06/27/18 10:20 Dose: 200 mls/hr Morphine Sulfate (Morphine) 2 mg IVPUSH Q4H PRN PRN Reason: Pain Last Admin: 06/27/18 10:20 Dose: 2 mg Nicotine (Habitrol) 14 mg TRDERM DAILY [facility] Last Admin: 06/27/18 10:25 Dose: Not Given Ondansetron HCl (Zofran Odt) 4 mg PO Q4H PRN PRN Reason: nausea, able to take PO Ondansetron HCl (Zofran) 4 mg IVPUSH Q4H PRN PRN Reason: Nausea Oxycodone HCl (Oxycodone) 5 mg PO Q6H PRN PRN Reason: Pain Last Admin: 06/27/18 04:43 Dose: 5 mg Polyethylene Glycol (Miralax) 17 gm PO DAILY PRN PRN Reason: Constipation Sodium Chloride (Saline Flush) 10 ml FLUSH ASDIRECTED PRN PRN Reason: Keep Vein Open Last Admin: 06/13/18 17:30 Dose: 10 ml Sodium Chloride (Saline Flush) 2.5 ml FLUSH ASDIRECTED PRN PRN Reason: Keep Vein Open Last Admin: 06/13/18 17:30 Dose: 2.5 ml Valacyclovir HCl (Valtrex) 1,000 mg PO BID [facility] Last Admin: 06/27/18 10:20 Dose: 1,000 mg Discontinued Medications Acetaminophen (Tylenol) 650 mg PO Q4H PRN PRN Reason: Pain (Mild 1-3)/fever Last Admin: 06/19/18 02:02 Dose: 650 mg Penicillin G Potassium 4 (millunits/ Dextrose/Water) 100 mls @ 200 mls/hr IV Q4H [facility] Stop: 06/27/18 18:46 Last Admin: 06/13/18 21:06 Dose: 200 mls/hr Ceftriaxone Sodium 2 gm/ (Sodium Chloride) 50 mls @ 100 mls/hr IV ONETIME ONE Stop: 06/17/18 05:29 Last Admin: 06/17/18 04:10 Dose: 100 mls/hr Ibuprofen (Motrin) 800 mg PO Q6H PRN PRN Reason: Pain (mild 1-3) Last Admin: 06/16/18 12:16 Dose: 800 mg Ketorolac Tromethamine (Toradol) 60 mg IM ONETIME ONE Stop: 06/13/18 17:13 Last Admin: 06/13/18 17:33 Dose: Not Given Ketorolac Tromethamine (Toradol) 30 mg IVPUSH ONETIME ONE Stop: 06/13/18 17:17 Last Admin: 06/13/18 17:25 Dose: 30 mg Ketorolac Tromethamine (Toradol) 30 mg IV Q6H PRN PRN Reason: Pain (moderate 4-6) Morphine Sulfate (Morphine) 2 mg IVPUSH Q2H PRN PRN Reason: Pain (severe 7-10) Stop: 06/14/18 17:54 Last Admin: 06/13/18 18:33 Dose: 2 mg Morphine Sulfate (Morphine) 2 mg IVPUSH Q2H PRN PRN Reason: Pain (severe 7-10) Stop: 06/14/18 17:54 Last Admin: 06/13/18 21:52 Dose: 2 mg Morphine Sulfate (Morphine) 2 mg IVPUSH ONETIME ONE Stop: 06/16/18 05:57 Last Admin: 06/16/18 06:06 Dose: 2 mg Nicotine (Habitrol) 14 mg TRDERM DAILY [facility] Potassium Chloride (Potassium Chloride) 40 meq PO ONETIME ONE Stop: 06/14/18 07:53 Last Admin: 06/14/18 08:39 Dose: 40 meq
== END 2018-06-27 11:15 | disposition home or self-care (01) | DRG 57 ==
LOC: MW.ED 16:18 → MW.MS 17:36
PROVIDERS: ADMIT Internal Medicine; ATTEND Internal Medicine
PROC: 009U3ZX Drainage of Spinal Canal, Percutaneous Approach, Diagnostic (ICD-10-PCS; principal; 2018-06-13)
DX: A52.3 Neurosyphilis, unspecified (principal); Z21 Asymptomatic human immunodeficiency virus [HIV] infection status; R74.0 Nonspecific elevation of levels of transaminase and lactic acid dehydrogenase [LDH]; F17.200 Nicotine dependence, unspecified, uncomplicated; A60.01 Herpesviral infection of penis; E87.6 Hypokalemia
CPT/HCPCS: 36415; 71045; 71045-26; 80048; 80053; 80074; 81001; 82945; 83735; 84157; 85025; 86592; 87040; 87086; 87389; 87491; 87536; 87591; 89050; 96374; 99284-25; A9270-GY; J0696; J1650; J1885; J2270; J2540; J7050; J7060